=== PATIENT | male | born 1970 | race Two or more races ===

== ENCOUNTER 2024-07-07 20:29 | Inpatient (IN) | payer MEDICAID, OTHER ==
[~2024-07-07] VITALS: Ht 175.3 cm; Wt 92.6 kg
[2024-07-07] MEDS: IOHEXOL 300 MG/ML 100ML BOTTLE IJ ONE (21:13)
[2024-07-07 23:10] LABS: Basophils # (auto) 0.1 10 ^3/uL (0-0.2); Basophils % (auto) 1.1 % (0.0-2.0); Eosinophils # (auto) 0.7 10 ^3/uL (0-0.8); Eosinophils % (auto) 5.8 % (0.0-7.0); Hemoglobin 13.2 g/dL (13.5-17.5); Lymphocytes % (auto) 22.8 % (10.0-50.0); Mean Corpuscular Hemoglobin 23.7 pg (28.0-32.0); Mean Corpuscular Hgb Conc. 32.3 g/dL (32.0-36.0); Mean Corpuscular Volume 73.5 fL (80.0-100.0); Monocytes # (auto) 1.1 10 ^3/uL (0-1.3); Monocytes % (auto) 8.5 % (0.0-12.0); Neutrophils % (auto) 61.8 % (37.0-80.0); Nucleated Red Blood Cells % 0.1 %; Platelet Count (auto) 461 10^3/uL (140-450); Red Blood Cells 5.58 10^6/uL (4.5-5.90); Red Cell Distribution Width 18.3 % (11.8-14.3)
[2024-07-07 23:21] LABS: Chloride 105 mmol/L (98-107); Potassium 4.1 mmol/L (3.5-5.1); Sodium 135 mmol/L (136-145)
[2024-07-07 23:22] LABS: Anion Gap 8 (5-15); Calcium 10.9 mg/dL (8.7-10.4); Carbon Dioxide 22 mmol/L (20-30)
[2024-07-07 23:27] LABS: BUN/Creatinine Ratio 16.7 (10.0-20.0); Blood Urea Nitrogen 16 mg/dL (9-23); Glucose 212 mg/dL (74-106)
[2024-07-08] VITALS (7 sets, daily range): BP systolic 102–160; BP diastolic 56–79; PULSE 68–123; RESP 11–20; TEMP 97.4–98.9; O2SAT 85–99
[2024-07-08] MEDS ORDERED: ACETAMINOPHEN 325 MG TAB PO PRN (05:00)
[2024-07-08] MEDS ORDERED: DEXTROSE (50%) 50ML SYRG IV PRN (05:00)
[2024-07-08] MEDS: cefTRIAXone 1GM/50ML D5W 50 ML IV ONE (05:27)
[2024-07-08] MEDS: ONDANSETRON HCL 4 MG/2 ML VIAL IV PRN (05:27)
[2024-07-08] MEDS: SODIUM CHLORIDE 0.9% 1,000 ML IV ONE (05:27)
[2024-07-08] MEDS: ACCU-CHEK COMFORT CURVE STRIP VI SCH (06:44)
[2024-07-08] MEDS: InsuLIN REG 1unit/0.01ml Soln (100units/ml) SC SCH (06:45)
[2024-07-08] MEDS: MORPHINE SULFATE INJ 2 MG/ml SYRG IV PRN (07:45)
[2024-07-08] MEDS: METOPROLOL TARTRATE 50 MG TAB PO SCH (09:02)
[2024-07-08] MEDS: ASPirin 81 mg TAB PO SCH (09:02)
[2024-07-08 09:49] LABS: INR 1.02 (0.9-1.15); Partial Thromboplastin Time 26.1 SEC (24.5-34.5)
[2024-07-08] MEDS: HYDROcodone-ACET 5/325MG TAB PO PRN (09:51)
[2024-07-08 10:42] LABS: Urine Bacteria FEW /hpf (None Seen); Urine Blood Negative /uL (Negative); Urine Clarity Turbid (Clear); Urine Color Light-Yellow (Yellow); Urine Mucus FEW (None Seen); Urine Protein, UAD TRACE (Negative); Urine Specific Gravity 1.026 (1.001-1.035); Urine Urobilinogen Normal (Negative); Urine WBC 35 /hpf (0 - 3); Urine pH 5.5 (5.0-9.0)
[2024-07-08] MEDS: LORazepam 0.5 MG TAB PO PRN (10:58)
[2024-07-08] MEDS: fentaNYL CITRATE 100 MCG/2 ML VL ONE (14:29)
[2024-07-08] MEDS: MIDAZOLAM HCL 2MG/2ML 2ml VIAL (1mg/ml) ONE ×2 (14:30→16:05)
[2024-07-08] MEDS: LIDOCAINE 2%HCL (LOCAL ANESTH.) INJ 20ML MDV ONE (14:30)
[2024-07-08] MEDS: diphenhdrAMINE HCL 50 MG/1 ML VL ONE (15:07)
[2024-07-08] MEDS: HYDROmorphone HCL 2 MG/ML VL/or syr ONE (15:12)
[2024-07-08] MEDS ORDERED: METF-370 PO (17:52)
[2024-07-08] MEDS ORDERED: ATOR40TA52 PO (17:53)
[2024-07-08] MEDS ORDERED: ASPI325T6 PO (17:53)
[2024-07-08] MEDS ORDERED: MET50T PO (17:54)
[2024-07-08] MEDS: ATORVASTATIN 20 MG TAB PO SCH (21:14)
[2024-07-09] VITALS (8 sets, daily range): BP systolic 130–159; BP diastolic 13–100; PULSE 68–132; RESP 18–22; TEMP 97.9–99.1; O2SAT 95–100
[2024-07-09] MEDS: METOCLOPRAMIDE HCL 5MG/ml INJ 2ml VIAL IV ONE (05:07)
[2024-07-09 07:43] LABS: Chloride 102 mmol/L (98-107); Potassium 5.3 mmol/L (3.5-5.1); Sodium 132 mmol/L (136-145)
[2024-07-09 07:44] LABS: Anion Gap 13 (5-15); Carbon Dioxide 17 mmol/L (20-30)
[2024-07-09 07:45] LABS: Calcium 11.1 mg/dL (8.7-10.4)
[2024-07-09 07:48] LABS: Basophils # (auto) 0 10 ^3/uL (0-0.2); Basophils % (auto) 0.2 % (0.0-2.0); Eosinophils # (auto) 0 10 ^3/uL (0-0.8); Hemoglobin 10.9 g/dL (13.5-17.5); Lymphocytes # (auto) 0.8 10 ^3/uL (0.4-5.4); Mean Corpuscular Hemoglobin 24.1 pg (28.0-32.0); Mean Corpuscular Hgb Conc. 31.3 g/dL (32.0-36.0); Neutrophils # (auto) 18.7 10 ^3/uL (1.6-8.6); Neutrophils % (auto) 90.8 % (37.0-80.0); Platelet Count (auto) 545 10^3/uL (140-450); Red Blood Cells 4.55 10^6/uL (4.5-5.90); Red Cell Distribution Width 18.5 % (11.8-14.3); White Blood Cell 20.6 10^3/uL (4.4-10.8)
[2024-07-09 07:50] LABS: BUN/Creatinine Ratio 8.6 (10.0-20.0); Blood Urea Nitrogen 10 mg/dL (9-23)
[2024-07-09 07:57] LABS: Glucose 353 mg/dL (74-106)
[2024-07-09] MEDS: SODIUM CHLORIDE 0.9% 1,000 ML IV SCH (10:09)
[2024-07-09] MEDS: cefTRIAXone 1GM/50ML D5W 50 ML IV SCH (10:09)
[2024-07-09] MEDS ORDERED: DEXTROSE (50%) 50ML SYRG IV PRN (10:30)
[2024-07-09] MEDS: ACCU-CHEK COMFORT CURVE STRIP VI SCH (11:30)
[2024-07-09] MEDS: InsuLIN REG 1unit/0.01ml Soln (100units/ml) SC SCH ×2 (11:30→20:35)
[2024-07-09] MEDS: SODIUM ZIRCONIUM CYCL 10 GM PAK PO ONE (12:21)
[2024-07-09] MEDS: LORazepam 2MG/ML-1ML VIAL IV PRN (20:26)
[2024-07-09] MEDS: TEMAZEPAM 15 MG CAP PO ONE (22:49)
[2024-07-10 05:00] VITALS: BP 135/82; PULSE 112; RESP 19; TEMP 98.2; O2SAT 100
[2024-07-10 08:00] VITALS: PULSE 105; PULSE 112; RESP 17; O2SAT 96
[2024-07-10 08:20] LABS: Eosinophils # (auto) 0 10 ^3/uL (0-0.8)
[2024-07-10 08:24] LABS: Anion Gap 6 (5-15); Calcium 10.2 mg/dL (8.7-10.4); Carbon Dioxide 25 mmol/L (20-30); Chloride 103 mmol/L (98-107); Potassium 4.1 mmol/L (3.5-5.1); Sodium 134 mmol/L (136-145)
[2024-07-10 08:25] LABS: Basophils # (auto) 0 10 ^3/uL (0-0.2); Basophils % (auto) 0.3 % (0.0-2.0); Eosinophils % (auto) 0.2 % (0.0-7.0); Hematocrit 25.7 % (41.0-53.0); Hemoglobin 8.3 g/dL (13.5-17.5); Lymphocytes # (auto) 1.9 10 ^3/uL (0.4-5.4); Lymphocytes % (auto) 11.9 % (10.0-50.0); Mean Corpuscular Hemoglobin 23.8 pg (28.0-32.0); Mean Corpuscular Hgb Conc. 32.5 g/dL (32.0-36.0); Mean Corpuscular Volume 73.2 fL (80.0-100.0); Monocytes # (auto) 1.5 10 ^3/uL (0-1.3); Monocytes % (auto) 9.2 % (0.0-12.0); Neutrophils # (auto) 12.8 10 ^3/uL (1.6-8.6); Neutrophils % (auto) 78.4 % (37.0-80.0); Platelet Count (auto) 394 10^3/uL (140-450); Red Blood Cells 3.51 10^6/uL (4.5-5.90); Red Cell Distribution Width 17.4 % (11.8-14.3); White Blood Cell 16.3 10^3/uL (4.4-10.8)
[2024-07-10 08:30] LABS: Blood Urea Nitrogen 11 mg/dL (9-23)
[2024-07-10 08:31] LABS: Glucose 199 mg/dL (74-106)
[2024-07-10 08:37] LABS: Partial Thromboplastin Time < 20.0 SEC (24.5-34.5); Prothrombin Time 10.6 sec (9.3-11.8)
[2024-07-10] MEDS: FUROSEMIDE 40 MG/4 ML VIAL IV ONE (08:45)
[2024-07-10 09:00] VITALS: BP 142/77; PULSE 105; RESP 17; TEMP 97.9; O2SAT 96
[2024-07-10] MEDS ORDERED: FUROSEMIDE 40 MG/4 ML VIAL ONE (10:11)
[2024-07-10 13:09] VITALS: BP 146/91; PULSE 117; RESP 16; TEMP 97.8; O2SAT 95
== END 2024-07-10 14:02 | disposition left against medical advice (07) | DRG 466 ==
LOC: ER 20:29 → OVERFLOW 07-08 05:02 → CENTRAL 07-08 17:15 → TELE-CENTR 07-09 09:48
PROVIDERS: ADMIT Nurse Practitioner; ATTEND Nurse Practitioner Acute Care
PROC: 0TJ53ZZ Inspection of Kidney, Percutaneous Approach (ICD-10-PCS; principal; 2024-07-08)
DX: T83.022A Displacement of nephrostomy catheter, initial encounter (principal); N13.6 Pyonephrosis; R65.10 Systemic inflammatory response syndrome (SIRS) of non-infectious origin without acute organ dysfunction; E11.9 Type 2 diabetes mellitus without complications; E78.5 Hyperlipidemia, unspecified; I10 Essential (primary) hypertension; Z53.29 Procedure and treatment not carried out because of patient's decision for other reasons; F31.9 Bipolar disorder, unspecified; E66.9 Obesity, unspecified; Z91.199 Patient's noncompliance with other medical treatment and regimen due to unspecified reason; Z95.1 Presence of aortocoronary bypass graft; Z88.0 Allergy status to penicillin; Y84.8 Other medical procedures as the cause of abnormal reaction of the patient, or of later complication, without mention of misadventure at the time of the procedure; Y92.89 Other specified places as the place of occurrence of the external cause; Z68.30 Body mass index [BMI] 30.0-30.9, adult
CPT/HCPCS: 36415; 71045; 74177; 74425; 76942; 78707; 80048; 81001; 82962; 83036; 84132; 85025; 85610; 85730; 86850; 86900; 86901; 87086; 99152; G0378; J1815; J2250; J2405

== ENCOUNTER 2024-09-03 18:45 | Inpatient (IN) | payer MEDICAID ==
[~2024-09-03] VITALS: Ht 175.3 cm; Wt 92.1 kg
[~2024-09-03 18:45] MED LIST: ASPI325T6 PO; ATOR40TA52 PO; MET50T PO; METF-370 PO
[2024-09-03 19:50] LABS: Basophils # (auto) 0 10 ^3/uL (0-0.2); Basophils % (auto) 0.3 % (0.0-2.0); Eosinophils # (auto) 0 10 ^3/uL (0-0.8); Monocytes # (auto) 1.1 10 ^3/uL (0-1.3)
[2024-09-03 19:52] LABS: Hematocrit 42.7 % (41.0-53.0); Hemoglobin 13.3 g/dL (13.5-17.5); Lymphocytes % (auto) 6.3 % (10.0-50.0); Mean Corpuscular Hemoglobin 22.8 pg (28.0-32.0); Mean Corpuscular Hgb Conc. 31.2 g/dL (32.0-36.0); Monocytes % (auto) 7.4 % (0.0-12.0); Neutrophils # (auto) 13.2 10 ^3/uL (1.6-8.6); Platelet Count (auto) 445 10^3/uL (140-450); Red Blood Cells 5.85 10^6/uL (4.5-5.90); Red Cell Distribution Width 18.1 % (11.8-14.3); White Blood Cell 15.3 10^3/uL (4.4-10.8)
[2024-09-03 20:02] LABS: Anion Gap 12 (5-15); Carbon Dioxide 22 mmol/L (20-31); Chloride 100 mmol/L (98-107); Potassium 3.9 mmol/L (3.5-5.1); Sodium 134 mmol/L (136-145)
[2024-09-03 20:03] LABS: Calcium 11.7 mg/dL (8.7-10.4)
[2024-09-03 20:08] LABS: Glucose 229 mg/dL (74-106)
[2024-09-03 20:39] LABS: INR 1.06 (0.9-1.15); Prothrombin Time 11.2 sec (9.3-11.8)
[2024-09-03 21:15] VITALS: PULSE 111; RESP 13; O2SAT 97
[2024-09-03 21:20] VITALS: PULSE 106; RESP 16; O2SAT 98
[2024-09-03 21:49] LABS: BUN/Creatinine Ratio 8.2 (10.0-20.0); Blood Urea Nitrogen 8 mg/dL (9-23)
[2024-09-03] MEDS ORDERED: MORPHINE SULFATE INJ 2 MG/ml SYRG IV PRN (22:00)
[2024-09-03] MEDS ORDERED: hydrALAZINE HCL 20 MG/ML VL IV PRN (22:00)
[2024-09-03] MEDS ORDERED: NITROGLYCERIN 0.4 MG SL TAB SL PRN (22:00)
[2024-09-03] MEDS ORDERED: ENOXAPARIN SOD 40 MG/0.4 ML SYRINGE SC SCH (22:00)
[2024-09-03] MEDS ORDERED: DEXTROSE (50%) 50ML SYRG IV PRN (22:45)
[2024-09-03] MEDS: cefTRIAXone 1GM/50ML D5W 50 ML IV ONE (22:50)
[2024-09-03] MEDS: MORPHINE SULFATE INJ 2 MG/ml SYRG IV ONE (22:50)
[2024-09-03] MEDS: SODIUM CHLOR 0.9% PF (SALINE LOCK) 10ML VIAL/SYR IV SCH (22:50)
[2024-09-03] MEDS: ONDANSETRON HCL 4 MG/2 ML VIAL IV ONE (22:50)
[2024-09-04] VITALS (7 sets, daily range): BP systolic 127–150; BP diastolic 80–99; PULSE 80–114; RESP 18–21; TEMP 98–99.7; O2SAT 94–100
[2024-09-04] MEDS: LABETALOL HCL 20 MG/4 ML VL IV ONE (00:23)
[2024-09-04] MEDS: ACETAMINOPHEN 325 MG TAB PO PRN (01:50)
[2024-09-04 02:29] LABS: Amphetamine Screen, Urine Neg (NEGATIVE); Barbiturate Scree,Urine Neg (NEGATIVE); Benzodiazephine Screen, Urine Neg (NEGATIVE); Cannabinoid Screen, Urine Pos (NEGATIVE); Cocaine Screen, Urine Neg (NEGATIVE); Opiate Scree,Urine Pos (NEGATIVE); Phencyclidine Screen, Urine Neg (NEGATIVE)
[2024-09-04 02:35] LABS: Urine Bacteria MANY /hpf (None Seen); Urine Blood 2+ /uL (Negative); Urine Clarity Ex.Turbid (Clear); Urine Color Light-Orange (Yellow); Urine Mucus FEW (None Seen); Urine Protein, UAD 2+ (Negative); Urine Specific Gravity 1.015 (1.001-1.035); Urine Urobilinogen Normal (Negative); Urine WBC 584 /hpf (0 - 3); Urine WBC Clumps PRESENT /hpf (None Seen); Urine pH 6.5 (5.0-9.0)
[2024-09-04] MEDS: MORPHINE SULFATE INJ 2 MG/ml SYRG IV PRN (02:43)
[2024-09-04] MEDS: ONDANSETRON HCL 4 MG/2 ML VIAL IV PRN (02:55)
[2024-09-04] MEDS: ACCU-CHEK COMFORT CURVE STRIP VI SCH (06:09)
[2024-09-04] MEDS: InsuLIN REG 1unit/0.01ml Soln (100units/ml) SC SCH ×2 (06:09→21:55)
[2024-09-04 07:11] LABS: Basophils # (auto) 0.1 10 ^3/uL (0-0.2); Basophils % (auto) 0.5 % (0.0-2.0); Eosinophils # (auto) 0 10 ^3/uL (0-0.8); Hematocrit 38.9 % (41.0-53.0); Hemoglobin 12.2 g/dL (13.5-17.5); Lymphocytes # (auto) 0.8 10 ^3/uL (0.4-5.4); Lymphocytes % (auto) 6.8 % (10.0-50.0); Mean Corpuscular Hemoglobin 22.4 pg (28.0-32.0); Mean Corpuscular Hgb Conc. 31.4 g/dL (32.0-36.0); Mean Corpuscular Volume 71.2 fL (80.0-100.0); Monocytes # (auto) 1.1 10 ^3/uL (0-1.3); Monocytes % (auto) 8.9 % (0.0-12.0); Neutrophils # (auto) 10.2 10 ^3/uL (1.6-8.6); Neutrophils % (auto) 83.8 % (37.0-80.0); Platelet Count (auto) 421 10^3/uL (140-450); Red Blood Cells 5.46 10^6/uL (4.5-5.90); Red Cell Distribution Width 18.4 % (11.8-14.3); White Blood Cell 12.2 10^3/uL (4.4-10.8)
[2024-09-04 07:23] LABS: INR 1.09 (0.9-1.15); Partial Thromboplastin Time 25.9 SEC (24.5-34.5); Prothrombin Time 11.5 sec (9.3-11.8)
[2024-09-04 07:32] LABS: Alanine Aminotransferase 11 U/L (7-40); Albumin 4.7 g/dL (3.2-4.8); Alkaline Phosphatase 188 U/L (46-116); Anion Gap 11 (5-15); Aspartate Aminotransferase 8 U/L (13-40); BUN/Creatinine Ratio 10.6 (10.0-20.0); Bilirubin, Total 0.6 mg/dL (0.2-1.0); Blood Urea Nitrogen 9 mg/dL (9-23); Calcium 11.1 mg/dL (8.7-10.4); Carbon Dioxide 22 mmol/L (20-31); Chloride 99 mmol/L (98-107); Glucose 198 mg/dL (74-106); Sodium 132 mmol/L (136-145); Total Protein 7.6 g/dL (5.7-8.2)
[2024-09-04] MEDS: HYDROcodone-ACET 10/325MG TAB PO PRN (14:00)
[2024-09-04] MEDS: PROCHLORPERAZINE EDISYLATE 5 MG/ML 2ML VIAL IV ONE (14:01)
[2024-09-04] MEDS: PIPERACILLIN-TAZOB 3.375GM 100 ML IV SCH (14:04)
[2024-09-04] MEDS: CELECOXIB 100 MG CAP PO ONE (14:04)
[2024-09-05] MEDS: MELATONIN 5 MG TAB PO SCH (01:03)
[2024-09-05 05:00] VITALS: BP 134/95; PULSE 102; RESP 18; TEMP 97.9; O2SAT 94
[2024-09-05 07:43] LABS: Basophils # (auto) 0 10 ^3/uL (0-0.2); Basophils % (auto) 0.5 % (0.0-2.0); Eosinophils # (auto) 0 10 ^3/uL (0-0.8); Eosinophils % (auto) 0.1 % (0.0-7.0); Hemoglobin 12.7 g/dL (13.5-17.5); Monocytes # (auto) 0.8 10 ^3/uL (0-1.3)
[2024-09-05 07:45] LABS: Hematocrit 39.6 % (41.0-53.0); Lymphocytes # (auto) 0.6 10 ^3/uL (0.4-5.4); Lymphocytes % (auto) 6.5 % (10.0-50.0); Mean Corpuscular Hemoglobin 22.6 pg (28.0-32.0); Mean Corpuscular Hgb Conc. 32.2 g/dL (32.0-36.0); Mean Corpuscular Volume 70.2 fL (80.0-100.0); Monocytes % (auto) 8.9 % (0.0-12.0); Neutrophils # (auto) 7.2 10 ^3/uL (1.6-8.6); Platelet Count (auto) 393 10^3/uL (140-450); Red Blood Cells 5.64 10^6/uL (4.5-5.90); White Blood Cell 8.6 10^3/uL (4.4-10.8)
[2024-09-05 08:02] LABS: Alanine Aminotransferase 16 U/L (7-40); Alkaline Phosphatase 181 U/L (46-116); Anion Gap 10 (5-15); BUN/Creatinine Ratio 11.6 (10.0-20.0); Blood Urea Nitrogen 11 mg/dL (9-23); Calcium 10.9 mg/dL (8.7-10.4); Carbon Dioxide 23 mmol/L (20-31); Chloride 98 mmol/L (98-107); Glucose 203 mg/dL (74-106); Potassium 4.2 mmol/L (3.5-5.1); Sodium 131 mmol/L (136-145)
[2024-09-05 08:03] LABS: Albumin 4.5 g/dL (3.2-4.8); Aspartate Aminotransferase 17 U/L (13-40); Bilirubin, Total 0.7 mg/dL (0.2-1.0)
[2024-09-05 08:04] LABS: Total Protein 7.3 g/dL (5.7-8.2)
[2024-09-05 09:47] VITALS: BP 130/86; PULSE 101; RESP 17; TEMP 98.2; O2SAT 95
[2024-09-05 13:00] VITALS: BP 127/87; PULSE 115; RESP 17; TEMP 97.1; O2SAT 97
[2024-09-05] MEDS ORDERED: HYDR-4798 PO (13:08)
[2024-09-05] MEDS ORDERED: ZOFR4T PO (13:08)
[2024-09-05] MEDS ORDERED: BACDST PO (13:08)
[2024-09-05 15:01] VITALS: PULSE 106
[2024-09-05 17:00] VITALS: BP 128/72; PULSE 98; RESP 17; TEMP 98.3; O2SAT 94
[2024-09-05 21:00] VITALS: BP 141/106; PULSE 139; RESP 18; TEMP 99; O2SAT 99
[2024-09-05] MEDS ORDERED: MELATONIN 5 MG TAB PO SCH (22:00)
[2024-09-06 01:00] VITALS: BP 128/91; PULSE 90; RESP 18; TEMP 98.1; O2SAT 96
[2024-09-06 05:00] VITALS: BP 133/89; PULSE 80; RESP 18; TEMP 98.2; O2SAT 95
[2024-09-06 09:11] VITALS: BP 108/70; PULSE 78; RESP 20; TEMP 97.7; O2SAT 96
[2024-09-06] MEDS ORDERED: HYDR-4798 PO (12:02)
[2024-09-06] MEDS ORDERED: ZOFR4T PO (12:02)
[2024-09-06] MEDS ORDERED: SULF400T11 PO (12:02)
[2024-09-06 12:38] VITALS: BP 134/75; PULSE 89; RESP 20; TEMP 98.2; O2SAT 94
== END 2024-09-06 13:00 | disposition home health service (06) | DRG 720 ==
LOC: ER 18:45 → OVERFLOW 21:55 → WEST WING 23:59
PROVIDERS: ADMIT Student in an Organized Health Care Education/Training Program; ATTEND Student in an Organized Health Care Education/Training Program
DX: A41.9 Sepsis, unspecified organism (principal); S37.011A Minor contusion of right kidney, initial encounter; E11.9 Type 2 diabetes mellitus without complications; D50.9 Iron deficiency anemia, unspecified; E78.5 Hyperlipidemia, unspecified; F12.10 Cannabis abuse, uncomplicated; T83.022A Displacement of nephrostomy catheter, initial encounter; N10 Acute pyelonephritis; N20.0 Calculus of kidney; F20.9 Schizophrenia, unspecified; I10 Essential (primary) hypertension; I25.10 Atherosclerotic heart disease of native coronary artery without angina pectoris; R91.1 Solitary pulmonary nodule; K42.9 Umbilical hernia without obstruction or gangrene; F41.9 Anxiety disorder, unspecified; I25.2 Old myocardial infarction; Z95.1 Presence of aortocoronary bypass graft; Z87.442 Personal history of urinary calculi; Z79.84 Long term (current) use of oral hypoglycemic drugs; Z79.82 Long term (current) use of aspirin; Y73.2 Prosthetic and other implants, materials and accessory gastroenterology and urology devices associated with adverse incidents; Y92.89 Other specified places as the place of occurrence of the external cause; Z88.5 Allergy status to narcotic agent; Z88.0 Allergy status to penicillin; Z79.899 Other long term (current) drug therapy
CPT/HCPCS: 36415; 74176; 80048; 80053; 80307; 81001; 82306; 82607; 82962; 83036; 84443; 85025; 85610; 85730; 86850; 86900; 86901; 87040; 87081; 87086; 87088; 87186; 96365; 96375; 99291; G0378; J1815; J2405; J2543

== ENCOUNTER 2024-09-20 17:56 | Emergency (ER) | payer MEDICAID ==
[~2024-09-20] VITALS: Ht 175.3 cm; Wt 89.3 kg
[~2024-09-20 17:56] MED LIST changes: +HYDR-4798 PO; +SULF400T11 PO; +ZOFR4T PO
[2024-09-20 18:09] VITALS: BP 158/110; PULSE 120; RESP 18; O2SAT 98
--- NOTE | 2024-09-20 18:54 | ED.PDOC ---
History of Present Illness HPI Comments 54-year-old male who came to ER for abnormal labs. Has a history of recurrent pyelonephritis, R nephrostomy, R renal hematoma, Hx R renal staghorn calculi. Patient being managed at [facility], multiple diagnostic test was done yesterday on him, and he was here with a phone call earlier today requesting him to proceed to the nearest ER since he has a normal lab results. Patient at this time is complaining of intractable nausea and vomiting states he could keep anything in Chief Complaint: Abnormal LAB's Time Seen by MD: 18:53 Primary Care Provider: UNKNOWN Reviewed Notes: Nurses Notes Allergies: Coded Allergies: Penicillins (Verified Allergy, Unknown, 07/07/24) Home Meds Active Scripts Ondansetron Odt 4MG Tab (ZOFRAN PO) 4 Mg Tb, 4 MG PO TIDPRN PRN for 5 Days, #15 TAB 0 Refills ODT TAB-DISSOLVE IN MOUTH, THEN SWALLOW Prov:BRUCE SAENZ MD 09/06/24 Hydrocodone-Acetaminophen (Hydrocodone Bitartrate/AC 10-325 mg) 1 Tab Tab, 1 TAB PO TIDPRN PRN for 7 Days, #21 TAB Prov:BRUCE SAENZ MD 09/06/24 Sulfamethoxazole-Trimethoprim (Bactrim) 1 Tab Tab, 1 TAB PO BID for 14 Days, #28 TAB 0 Refills Prov:BRUCE SAENZ MD 09/06/24 Reported Medications Metoprolol Tartrate (LOPRESSOR TABLET) 50 Mg Tb, 1 TAB PO BID 07/08/24 Aspirin (Aspirin) 325 Mg Tab, 1 TAB PO DAILY, #30 TAB 5 Refills 07/08/24 Atorvastatin Calcium (ATORVASTATIN CALCIUM) 40 Mg Tab, 1 TAB PO DAILY, #30 TAB 5 Refills 07/08/24 Metformin Hydrochloride (Metformin Hcl) 500 Mg Tab, PO 07/08/24 Information Source: Patient Mode of Arrival: Ambulatory Severity: Moderate Timing: Days Duration: Intermittent Prehospital treatment: None Past Medical History PAST MEDICAL HISTORY: CKF, DM, Kidney Stones Past Medical History (Other): pyelonephritis, R nephrostomy, R renal hematoma, Hx R renal staghorn calculi Surgical History: CABG, PTCA Surgical History (Other): Right nephrostomy tube Family History Family History: Reviewed,noncontributory to illness Social History Smoker: Non-Smoker Alcohol: Denies ETOH Use Drugs: Denies Drug Use Lives In: Home Constitutional: denies: chills, diaphoresis, fatigue, fever, malaise, sweats, weakness, others EENTM: denies: blurred vision, double vision, ear bleeding, ear discharge, ear drainage, ear pain, ear ringing, eye pain, eye redness, hearing loss, mouth pain, mouth swelling, nasal discharge, nose bleeding, nose congestion, nose pain, photophobia, tearing, throat pain, throat swelling, voice changes, others Respiratory: denies: cough, hemoptysis, orthopnea, SOB at rest, shortness of breath, SOB with excertion, stridor, wheezing, others Cardiovascular: denies: chest pain, dizzy spells, diaphoresis, Dyspnea on exertion, edema, irregular heart beat, left arm pain, lightheadedness, palpitations, PND, syncope, others Gastrointestinal: reports: nausea, poor appetite, vomiting; denies: abdomen distended, abdominal pain, blood streaked bowels, constipated, diarrhea, dysphagia, difficulty swallowing, hematemesis, melena, poor fluid intake, rectal bleeding, rectal pain, others Genitourinary: denies: burning, dysuria, flank pain, frequency, hematuria, incontinence, penile discharge, penile sore, pain, testicle pain, testicle swelling, urgency, others Neurological: denies: dizziness, fainting, headache, left sided numbness, left sided weakness, numbness, paresthesia, pre-existing deficit, right sided numbness, right sided weakness, seizure, speech problems, tingling, tremors, weakness, others Musculoskeletal: denies: back pain, gout, joint pain, joint swelling, muscle pain, muscle stiffness, neck pain, others Integumetry: denies: bruises, change in color, change in hair/nails, dryness, laceration, lesions, lumps, rash, wounds, others Allergic/Immunocompromised: denies: Difficulty Healing, Frequent Infections, Hives, Itching, others Hematologic/Lymphatic: denies: anemia, blood clots, easy bleeding, easy bruising, swollen glands, others Endocrine: denies: excessive hunger, excessive sweating, excessive thirst, excessive urination, flushing, intolerance to cold, intolerance to heat, unexplained weight gain, unexplained weight loss, others Psychiatric: denies: anxiety, bipolar disorder, depression, hopeless, panic d isorder, schizophrenia, sleepless, suicidal, others Physical Exam General Appearance: No Apparent Distress, Normal HEENT: Normal ENT Inspection, Pharynx Normal, TMs Normal Neck: Full Range of Motion, Non-Tender, Normal, Normal Inspection Respiratory: Chest Non-Tender, Lungs Clear, No Accessory Muscle Use, No Respiratory Distress, Normal Breath Sounds Cardiovascular: No Edema, No JVD, No Murmur, No Gallop, Normal Peripheral Pulses, Regular Rate/Rhythm Breast Exam: Deferred Gastrointestinal: No Organomegaly, Non Tender, No Pulsatile Mass, Normal Bowel Sounds, Soft, Other (Right nephrostomy tube) Genitalia: Deferred Pelvic: Deferred Rectal: Deferred Extremities: No calf tenderness, Normal capillary refill, Normal inspection, Normal range of motion, Non-tender, No pedal edema Musculoskeletal : Apperance: Normal Neurologic: Alert, 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 Was a procedure done?: No Differential Dx Considerations may include: Anemia, electrolyte imbalance, chronic kidney failure, recurrent UTI, nephrostomy issues X-Ray, Labs, Meds, VS Vital Signs Date Time Temp Pulse Resp B/P (MAP) Pulse Ox O2 Delivery O2 Flow Rate FiO2 09/20/24 18:09 97.5 120 18 158/110 (126) 98 Lab Test 09/20/24 18:40 Range/Units White Blood Count 14.7 H 4.4-10.8 10^3/uL Red Blood Count 6.19 H 4.5-5.90 10^6/uL Hemoglobin 14.1 13.5-17.5 g/dL Hematocrit 44.3 41.0-53.0 % Mean Corpuscular Volume 71.5 L 80.0-100.0 fL Mean Corpuscular Hemoglobin 22.7 L 28.0-32.0 pg Mean Corpuscular Hemoglobin Concent 31.8 L 32.0-36.0 g/dL Red Cell Distribution Width 18.6 H 11.8-14.3 % Platelet Count 674 H 140-450 10^3/uL Mean Platelet Volume 7.6 6.9-10.8 fL Neutrophils (%) (Auto) 78.3 37.0-80.0 % Lymphocytes (%) (Auto) 12.5 10.0-50.0 % Monocytes (%) (Auto) 8.1 0.0-12.0 % Eosinophils (%) (Auto) 0.3 0.0-7.0 % Basophils (%) (Auto) 0.8 0.0-2.0 % Neutrophils # (Auto) 11.5 H 1.6-8.6 10 ^3/uL Lymphocytes # (Auto) 1.8 0.4-5.4 10 ^3/uL Monocytes # (Auto) 1.2 0-1.3 10 ^3/uL Eosinophils # (Auto) 0 0-0.8 10 ^3/uL Basophils # (Auto) 0.1 0-0.2 10 ^3/uL Nucleated Red Blood Cells 0.0 % Sodium Level 133 L 136-145 mmol/L Potassium Level 4.1 3.5-5.1 mmol/L Chloride Level 99 98-107 mmol/L Carbon Dioxide Level 22 20-31 mmol/L Anion Gap 12 5-15 Blood Urea Nitrogen 11 9-23 mg/dL Creatinine 1.23 0.700-1.30 mg/dL Glomerular Filtration Rate Calc 69 >90 mL/min BUN/Creatinine Ratio 8.9 L 10.0-20.0 Serum Glucose 238 H 74-106 mg/dL Lactic Acid Level 1.7 0.4-2.0 mmol/L Calcium Level 11.9 H 8.7-10.4 mg/dL Time of 1ST Reevaluation: 18:47 Reevaluation 1ST: Unchanged Patient Education/Counseling: Diagnosis, Treatment Family Education/Counseling: No Family Present Departure 1 Departure Time of Disposition: 19:35 (Patient does not want to wait for lab results for. We will discharge patient home with outpatient follow up) Impression: Primary Impression: Laboratory test Disposition: 01 HOME / SELF CARE / HOMELESS Condition: Stable Additional Instructions: We sent new blood cultures to the lab today. We will call you with any results. Discharged With: Self Critical Care Note Critical Care Time?: No Stability Stability form required: No Heart Score Heart Score: Heart Score Response (Comments) Value History N/A 0 EKG N/A 0 Age N/A 0 Risk Factors N/A 0 Troponin N/A 0 Total 0 I personally scribed for KAMILA DRIVER MD ([email or web address]) on 09/20/24 at 18:54. Electronically submitted by Clark Ortega ([facility]). KAMILA DRIVER MD Sep 20, 2024 18:54
[2024-09-20 19:16] LABS: Basophils # (auto) 0.1 10 ^3/uL (0-0.2); Basophils % (auto) 0.8 % (0.0-2.0); Eosinophils # (auto) 0 10 ^3/uL (0-0.8); Eosinophils % (auto) 0.3 % (0.0-7.0)
[2024-09-20 19:18] LABS: Hematocrit 44.3 % (41.0-53.0); Hemoglobin 14.1 g/dL (13.5-17.5); Lymphocytes # (auto) 1.8 10 ^3/uL (0.4-5.4); Lymphocytes % (auto) 12.5 % (10.0-50.0); Mean Corpuscular Hemoglobin 22.7 pg (28.0-32.0); Mean Corpuscular Hgb Conc. 31.8 g/dL (32.0-36.0); Mean Corpuscular Volume 71.5 fL (80.0-100.0); Monocytes # (auto) 1.2 10 ^3/uL (0-1.3); Monocytes % (auto) 8.1 % (0.0-12.0); Neutrophils # (auto) 11.5 10 ^3/uL (1.6-8.6); Neutrophils % (auto) 78.3 % (37.0-80.0); Platelet Count (auto) 674 10^3/uL (140-450); Red Blood Cells 6.19 10^6/uL (4.5-5.90); Red Cell Distribution Width 18.6 % (11.8-14.3); White Blood Cell 14.7 10^3/uL (4.4-10.8)
[2024-09-20 19:22] LABS: Chloride 99 mmol/L (98-107); Potassium 4.1 mmol/L (3.5-5.1); Sodium 133 mmol/L (136-145)
[2024-09-20 19:24] LABS: Anion Gap 12 (5-15); Calcium 11.9 mg/dL (8.7-10.4); Carbon Dioxide 22 mmol/L (20-31)
[2024-09-20 19:29] LABS: BUN/Creatinine Ratio 8.9 (10.0-20.0); Blood Urea Nitrogen 11 mg/dL (9-23); Glucose 238 mg/dL (74-106)
== END 2024-09-20 21:16 | disposition home or self-care (01) ==
LOC: ER 18:04
DX: R78.89 Finding of other specified substances, not normally found in blood (principal); E11.9 Type 2 diabetes mellitus without complications; Z88.0 Allergy status to penicillin; Z79.899 Other long term (current) drug therapy; Z79.84 Long term (current) use of oral hypoglycemic drugs; Z87.442 Personal history of urinary calculi; Z98.890 Other specified postprocedural states
CPT/HCPCS: 36415; 80048; 83605; 85025; 87040

== ENCOUNTER 2025-02-08 15:34 | Emergency (ER) | payer MEDICAID ==
[~2025-02-08] VITALS: Ht 175.3 cm; Wt 91.2 kg
[2025-02-08] MEDS: SODIUM CHLORIDE 0.9% 1,000 ML IV ONE (16:00)
[2025-02-08] MEDS: VANCOMYCIN 1GM/200ML PM 250 ML IV ONE (16:00)
[2025-02-08 16:15] VITALS: BP 91/36; TEMP 98.4
[2025-02-08 16:28] VITALS: PULSE 134; RESP 18; O2SAT 96
[2025-02-08 16:39] LABS: Basophils # (auto) 0.1 10 ^3/uL (0-0.2); Basophils % (auto) 1.1 % (0.0-2.0); Eosinophils # (auto) 0.4 10 ^3/uL (0-0.8); Eosinophils % (auto) 2.8 % (0.0-7.0); Hematocrit 42.4 % (41.0-53.0); Hemoglobin 13.9 g/dL (13.5-17.5); Lymphocytes # (auto) 2.3 10 ^3/uL (0.4-5.4); Lymphocytes % (auto) 17.8 % (10.0-50.0); Mean Corpuscular Hgb Conc. 32.7 g/dL (32.0-36.0); Mean Corpuscular Volume 76.5 fL (80.0-100.0); Monocytes # (auto) 1.1 10 ^3/uL (0-1.3); Monocytes % (auto) 8.3 % (0.0-12.0); Neutrophils # (auto) 8.9 10 ^3/uL (1.6-8.6); Nucleated Red Blood Cells % 0.1 %; Platelet Count (auto) 480 10^3/uL (140-450); Red Blood Cells 5.55 10^6/uL (4.5-5.90); Red Cell Distribution Width 17.7 % (11.8-14.3); White Blood Cell 12.7 10^3/uL (4.4-10.8)
[2025-02-08 16:55] LABS: Alanine Aminotransferase 19 U/L (7-40); Anion Gap 9 (5-15); BUN/Creatinine Ratio 10.3 (10.0-20.0); Blood Urea Nitrogen 12 mg/dL (9-23); Carbon Dioxide 23 mmol/L (20-31); Chloride 103 mmol/L (98-107); Total Protein 8.1 g/dL (5.7-8.2)
[2025-02-08 16:56] LABS: Bilirubin, Total 0.4 mg/dL (0.2-1.0)
--- NOTE | 2025-02-08 16:58 | DVH ---
Indication: back pain Technique: CT axial images of the abdomen and pelvis are obtained without contrast. Coronal and sagit daniel reformats were obtained. Radiation Dose Information: CTDI volume is 15.27 mGy. Dose-length product is 835.73 mGy*cm Comparison: CT CT AB PEL WO CON-NO ORAL OR IV on DOS: 09/03/24 FINDINGS: There is limited interpretation of the abdomen and pelvis without administration of intravenous contr ast. The lung bases demonstrate a 10 mm right middle lobe pulmonary nodule. Adrenal glands, spleen, pancreas are unremarkable in shape. No CT evidence for cholelithiasis. Liver is unremarkable in shape. Left kidney demonstrates no hydronephrosis, nephrolithiasis. There is a right nephrostomy tube. Mild right hydronephrosis. Right ureteral stent that is is encrust ed in the lower right renal pelvis / proximal right ureter by a calculus that measures approximately 2.9 cm. Similarly, there is a bladder calculus encrusting the distal pigtail measuring 1.9 cm. Right perinephric stranding. Right perinephric fluid collection anteriorly measuring 3.3 x 2.3 cm, previous ly 7.1 x 5.6 cm. Stomach is moderately distended. Small bowel loops normal in caliber. Colonic diverticular disease. M oderate volume stool in the colon. Normal appendix. Abdominal aortic atherosclerotic disease. Bladder is partially distended. Bladder wall thickening and surrounding stranding. Bladder calculus and crossing the distal ureteral stent pigtail again noted. No free pelvic fluid. No inguinal lymphadenopathy. Periumbilical hernia containing fat measuring 6.6 x 6.9 cm. [id number] thoracolumbar degenerative disc disease. IMPRESSION: 1. Right nephrostomy tube and mild right hydronephrosis. 2. Large pelvic/staghorn calculus measuring 2.9 cm that is encrusting a right ureteral stent. The dis daniel pigtail is also encrusted by a bladder calculus which measures 1.9 cm. 3. Right perinephric stranding / edema. Correlate for urinary tract infection / pyelonephritis. 4. Anterior right perinephric fluid collection measuring 3.3 x 2.3 cm, decreased from previous examin ation. Differential considerations include hematoma, infected collections. Follow-up to resolution. 5. Bladder wall thickening with surrounding stranding, may represent cystitis. 6. 10 mm right middle lobe pulmonary nodule. Follow-up per Fleischner society criteria. 7. Large periumbilical hernia containing fat measuring 6.9 x 6.6 cm. 8. Other findings as described.
[2025-02-08 17:02] LABS: Albumin 5.2 g/dL (3.2-4.8); Alkaline Phosphatase 223 U/L (46-116); Aspartate Aminotransferase 13 U/L (13-40); Calcium 11.7 mg/dL (8.7-10.4); Glucose 249 mg/dL (74-106); Sodium 135 mmol/L (136-145)
[2025-02-08] MEDS ORDERED: CIPR-173 PO (18:16)
[2025-02-08] MEDS ORDERED: HYDR-4902 PO (18:16)
--- NOTE | 2025-02-08 18:18 | ED.PDOC ---
General HPI Comments 54-year-old male complaining of painful urination and discharge from around his nephrostomy tube. Patient reports having history of kidney stone which has plugged the right kidney. States he was being evaluated for right kidney removal. States his change the dressing on his nephrostomy tube and she was states he was discharged in his foul odor. Patient was says he has a appointment with Urology on and can be seen by his doctor then. Chief Complaint: Urinary Time Seen by MD: 15:39 Primary Care Provider: UNKNOWN Reviewed notes: Nurses Notes Allergies: Coded Allergies: Penicillins (Verified Allergy, Unknown, 07/07/24) Home Meds Active Scripts Ondansetron Odt 4MG Tab (ZOFRAN PO) 4 Mg Tb, 4 MG PO TIDPRN PRN for 5 Days, #15 TAB 0 Refills ODT TAB-DISSOLVE IN MOUTH, THEN SWALLOW Prov:BRUCE SAENZ MD 09/06/24 Hydrocodone-Acetaminophen (Hydrocodone Bitartrate/AC 10-325 mg) 1 Tab Tab, 1 TAB PO TIDPRN PRN for 7 Days, #21 TAB Prov:BRUCE SAENZ MD 09/06/24 Sulfamethoxazole-Trimethoprim (Bactrim) 1 Tab Tab, 1 TAB PO BID for 14 Days, #28 TAB 0 Refills Prov:BRUCE SAENZ MD 09/06/24 Reported Medications Metoprolol Tartrate (LOPRESSOR TABLET) 50 Mg Tb, 1 TAB PO BID 07/08/24 Aspirin (Aspirin) 325 Mg Tab, 1 TAB PO DAILY, #30 TAB 5 Refills 07/08/24 Atorvastatin Calcium (ATORVASTATIN CALCIUM) 40 Mg Tab, 1 TAB PO DAILY, #30 TAB 5 Refills 07/08/24 Metformin Hydrochloride (Metformin Hcl) 500 Mg Tab, PO 07/08/24 Information Source: Patient Mode of Arrival: Ambulatory Severity: Mild Past Medical History PAST MEDICAL HISTORY: CKF, DM, Kidney Stones Surgical History: CABG, PTCA Family History Family History: Reviewed,noncontributory to illness Social History Smoker: Non-Smoker Alcohol: Denies ETOH Use Drugs: Denies Drug Use Lives In: Home Constitutional: denies: chills, diaphoresis, fatigue, fever, malaise, sweats, weakness, others EENTM: denies: blurred vision, double vision, ear bleeding, ear discharge, ear drainage, ear pain, ear ringing, eye pain, eye redness, hearing loss, mouth pain, mouth swelling, nasal discharge, nose bleeding, nose congestion, nose pain, photophobia, tearing, throat pain, throat swelling, voice changes, others Respiratory: denies: cough, hemoptysis, orthopnea, SOB at rest, shortness of breath, SOB with excertion, stridor, wheezing, others Cardiovascular: denies: chest pain, dizzy spells, diaphoresis, Dyspnea on exertion, edema, irregular heart beat, left arm pain, lightheadedness, palpitations, PND, syncope, others Gastrointestinal: denies: abdomen distended, abdominal pain, blood streaked bowels, constipated, diarrhea, dysphagia, difficulty swallowing, hematemesis, melena, nausea, poor appetite, poor fluid intake, rectal bleeding, rectal pain, vomiting, others Genitourinary: reports: burning, dysuria, flank pain; denies: frequency, hematuria, incontinence, penile discharge, penile sore, pain, testicle pain, testicle swelling, urgency, others Neurological: denies: dizziness, fainting, headache, left sided numbness, left sided weakness, numbness, paresthesia, pre-existing deficit, right sided numbness, right sided weakness, seizure, speech problems, tingling, tremors, weakness, others Musculoskeletal: denies: back pain, gout, joint pain, joint swelling, muscle pain, muscle stiffness, neck pain, others Integumetry: denies: bruises, change in color, change in hair/nails, dryness, laceration, lesions, lumps, rash, wounds, others Allergic/Immunocompromised: denies: Difficulty Healing, Frequent Infections, Hives, Itching, others Physical Exam General Appearance: No Apparent Distress, Normal HEENT: Normal ENT Inspection, Pharynx Normal, TMs Normal Neck: Full Range of Motion, Non-Tender, Normal, Normal Inspection Respiratory: Chest Non-Tender, Lungs Clear, No Accessory Muscle Use, No Respiratory Distress, Normal Breath Sounds Cardiovascular: No Edema, No JVD, No Murmur, No Gallop, Normal Peripheral Pulses, Regular Rate/Rhythm Breast Exam: Deferred Gastrointestinal: No Organomegaly, Non Tender, No Pulsatile Mass, Normal Bowel Sounds, Soft Genitalia: Deferred Pelvic: Deferred Rectal: Deferred Extremities: No calf tenderness, Normal capillary refill, Normal inspection, Normal range of motion, Non-tender, No pedal edema Musculoskeletal : Apperance: Normal Neurologic: Alert, licensed mental health professional II-XII nml as Tested, No Motor Deficits, Normal Affect, Normal Mood, No Sensory Deficits Cerebellar Function: Normal Reflexes: Normal Skin: Dry, Normal Color, Warm, Wounds (Scant discharge noted around the right nephrostomy tube insertion site.) Lymphatic: No Adenopathy Was a procedure done? Was a procedure done?: No Differential Diagnosis Kidney stone (Female): N/A Kidney stone (Male): Pancreatitis, Urinary obstruction, Renal infarction, Urinary tract infection X-Ray, Labs, Meds, VS Vital Signs Date Time Temp Pulse Resp B/P (MAP) Pulse Ox O2 Delivery O2 Flow Rate FiO2 02/08/25 16:28 134 18 96 Room Air* 0 21 02/08/25 16:15 98.4 130 18 91/36 (54) 96 98.4 02/08/25 15:55 111 02/08/25 15:46 96.8 134 18 91/36 (54) 96 96.8 Lab Test 02/08/25 16:08 Range/Units White Blood Count 12.7 H 4.4-10.8 10^3/uL Red Blood Count 5.55 4.5-5.90 10^6/uL Hemoglobin 13.9 13.5-17.5 g/dL Hematocrit 42.4 41.0-53.0 % Mean Corpuscular Volume 76.5 L 80.0-100.0 fL Mean Corpuscular Hemoglobin 25.0 L 28.0-32.0 pg Mean Corpuscular Hemoglobin Concent 32.7 32.0-36.0 g/dL Red Cell Distribution Width 17.7 H 11.8-14.3 % Platelet Count 480 H 140-450 10^3/uL Mean Platelet Volume 8.0 6.9-10.8 fL Neutrophils (%) (Auto) 70.0 37.0-80.0 % Lymphocytes (%) (Auto) 17.8 10.0-50.0 % Monocytes (%) (Auto) 8.3 0.0-12.0 % Eosinophils (%) (Auto) 2.8 0.0-7.0 % Basophils (%) (Auto) 1.1 0.0-2.0 % Neutrophils # (Auto) 8.9 H 1.6-8.6 10 ^3/uL Lymphocytes # (Auto) 2.3 0.4-5.4 10 ^3/uL Monocytes # (Auto) 1.1 0-1.3 10 ^3/uL Eosinophils # (Auto) 0.4 0-0.8 10 ^3/uL Basophils # (Auto) 0.1 0-0.2 10 ^3/uL Nucleated Red Blood Cells 0.1 % Sodium Level 135 L 136-145 mmol/L Potassium Level 4.0 3.5-5.1 mmol/L Chloride Level 103 98-107 mmol/L Carbon Dioxide Level 23 20-31 mmol/L Anion Gap 9 5-15 Blood Urea Nitrogen 12 9-23 mg/dL Creatinine 1.17 0.700-1.30 mg/dL Glomerular Filtration Rate Calc 74 >90 mL/min BUN/Creatinine Ratio 10.3 10.0-20.0 Serum Glucose 249 H 74-106 mg/dL Lactic Acid Level 1.8 0.4-2.0 mmol/L Calcium Level 11.7 H 8.7-10.4 mg/dL Total Bilirubin 0.4 0.2-1.0 mg/dL Aspartate Amino Transferase (AST) 13 13-40 U/L Alanine Aminotransferase (ALT) 19 7-40 U/L Alkaline Phosphatase 223 H 46-116 U/L Total Protein 8.1 5.7-8.2 g/dL Albumin 5.2 H 3.2-4.8 g/dL X-Ray, Labs, Meds, VS Comment Imaging: X-rays and CT scans were reviewed and interpreted by this provider, imaging shows renal calculi in the right side in possible pyelonephritis. Pending radiology review. Laboratory: Labs reviewed and interpreted by this provider. Patient has prior medical visits reviewed. Med reconciliation performed Vital signs reviewed He was explained to patient was a need for IV antibiotics to prevent worsening infection. Patient was states he was not lying being poked in refuses needles and IM antibiotic injections Patient was willing to wear continuous monitor and keeps taking wears off Patient preferred to be discharged home and follow up with his urologist on . Time of 1ST Reevaluation: 18:18 Reevaluation 1ST: Unchanged Patient Education/Counseling: Diagnosis, Treatment, Need For Follow Up (Follow up with PCP/urology next available appointment. Return to emergency department if symptoms worsen in the next 24 hours.) Family Education/Counseling: Diagnosis, Treatment Departure 1 Departure Time of Disposition: 18:13 Impression: Primary Impression: Nephrostomy complication Additional Impressions: Right flank pain Renal colic Pyelonephritis Disposition: HOME / SELF CARE / HOMELESS Condition: Stable e-Prescriptions Hydrocodone-Acetaminophen (Hydrocodone Bitartrate/AC 5-325 mg) 1 Tab Tab 1 TAB PO TID PRN, #12 TAB Prov: JODY MAURER 02/08/25 Ciprofloxacin Hcl (Cipro) 500 Mg Tab 1 TAB PO BID for 10 Days, #20 TAB Prov: JODY MAURER 02/08/25 Discharged With: Self Critical Care Note Critical Care Time?: No Stability Stability form required: No Heart Score Heart Score: Heart Score Response (Comments) Value History N/A 0 EKG N/A 0 Age N/A 0 Risk Factors N/A 0 Troponin N/A 0 Total 0 JODY MAURER Feb 08, 2025 18:18
[2025-02-08] MEDS: HYDROcodone-ACET 10/325MG TAB PO ONE (18:24)
[2025-02-08] MEDS: CIPROFLOXACIN HCL 500 MG TAB PO ONE (18:24)
--- NOTE | 2025-02-09 07:31 | ECG ---
[facility] Test Date: 2025-02-08 Test Time: 15:55:01 Pat Name: MER LEWIS Department: ER Room: Gender: M Material Assembler: [facility] : 1970 Requested By: EMERGENCY EMERGENCY Order Number: [id number] Reading MD: Erich Anders Measurements Intervals [place] Rate: 111 P: 38 [place]: 160 QRS: 242 QRSD: 82 T: 59 QT: 321 QTc: 436 Interpretive Statements Sinus tachycardia Probable left atrial enlargement Left anterior fascicular block Abnormal R-wave progression, late transition Baseline wander in lead(s) III,V2 Electronically Signed On 02-11-2025 14:19:12 PDT by Erich Anders Please click the below link to view image of tracing.
== END 2025-02-08 19:20 | disposition home or self-care (01) ==
LOC: ER 15:34
DX: T83.9XXA Unspecified complication of genitourinary prosthetic device, implant and graft, initial encounter (principal); N12 Tubulo-interstitial nephritis, not specified as acute or chronic; N23 Unspecified renal colic; E11.22 Type 2 diabetes mellitus with diabetic chronic kidney disease; N18.9 Chronic kidney disease, unspecified; Z87.442 Personal history of urinary calculi; Z95.1 Presence of aortocoronary bypass graft; Z79.82 Long term (current) use of aspirin; Z79.899 Other long term (current) drug therapy; Z88.0 Allergy status to penicillin; X58.XXXA Exposure to other specified factors, initial encounter
CPT/HCPCS: 36415; 74176; 80053; 83605; 85025; 87040; 93005

== ENCOUNTER 2025-08-01 16:14 | Inpatient (IN) | payer MEDICAID ==
[~2025-08-01] VITALS: Ht 175.3 cm; Wt 99.6 kg
[~2025-08-01 16:14] MED LIST changes: +CIPR-173 PO; +HYDR-4902 PO
--- NOTE | 2025-08-01 17:46 | ED.PDOC ---
General HPI Comments A 55 year-old male who presents to the ED via wheelchair with a chief complaint of infected nephrostomy tube. Patient additionally reports having an obstructing kidney stone. Patient has had a nephrostomy bag in place for 1.5 years since he is unable to urinate. Patient reports taking antibiotics for 1.5 months. Patient additionally states he was told to come to the ED from the long term. Patient has no further complaints at this time and otherwise denies N/V/D, redness, itchiness, fever, or chills. Patient was hypertensive with a blood pressure of 177/111 at arrival. Patient appears to be in poor overall health. Chief Complaint: Urinary Time Seen by MD: 17:40 Primary Care Provider: UNKNOWN Reviewed notes: Nurses Notes, Medications, Allergies Allergies: Coded Allergies: Penicillins (Verified Allergy, Unknown, 07/07/24) Home Meds Active Scripts Hydrocodone-Acetaminophen (Hydrocodone Bitartrate/AC 5-325 mg) 1 Tab Tab, 1 TAB PO TID PRN, #12 TAB Prov:JODY MAURERP 02/08/25 Ciprofloxacin Hcl (Cipro) 500 Mg Tab, 1 TAB PO BID for 10 Days, #20 TAB Prov:JODY MAURER 02/08/25 Ondansetron Odt 4MG Tab (ZOFRAN PO) 4 Mg Tb, 4 MG PO TIDPRN PRN for 5 Days, #15 TAB 0 Refills ODT TAB-DISSOLVE IN MOUTH, THEN SWALLOW Prov:BRUCE SAENZ MD 09/06/24 Hydrocodone-Acetaminophen (Hydrocodone Bitartrate/AC 10-325 mg) 1 Tab Tab, 1 TAB PO TIDPRN PRN for 7 Days, #21 TAB Prov:BRUCE SAENZ MD 09/06/24 Sulfamethoxazole-Trimethoprim (Bactrim) 1 Tab Tab, 1 TAB PO BID for 14 Days, #28 TAB 0 Refills Prov:BRUCE SAENZ MD 09/06/24 Reported Medications Metoprolol Tartrate (LOPRESSOR TABLET) 50 Mg Tb, 1 TAB PO BID 07/08/24 Aspirin (Aspirin) 325 Mg Tab, 1 TAB PO DAILY, #30 TAB 5 Refills 07/08/24 Atorvastatin Calcium (ATORVASTATIN CALCIUM) 40 Mg Tab, 1 TAB PO DAILY, #30 TAB 5 Refills 07/08/24 Metformin Hydrochloride (Metformin Hcl) 500 Mg Tab, PO 07/08/24 Information Source: Patient Mode of Arrival: Ambulatory Severity: Moderate Inability to void: Moderate Timing: Days Duration: Since onset Prehospital treatment: None Onset: Spontaneous Symptoms: Other (Clotted urine from nephrostomy site) History of: Kidney stone Location: Abdomen associated signs and symptoms: Abdominal Pain, Nausea, Other (infected nephrostomy tube) Past Medical History PAST MEDICAL HISTORY: CKF, DM, Kidney Stones Past Medical History (Other): Patient has a history of kidney stones, renal disease and has a nephrostomy that has been in place for 1-1/2 years. Surgical History: CABG, PTCA Family History Family History: Reviewed,noncontributory to illness Social History Smoker: Non-Smoker Alcohol: Denies ETOH Use Drugs: Denies Drug Use Lives In: Home Constitutional: reports: fatigue; denies: chills, diaphoresis, fever, malaise, sweats, weakness, others EENTM: denies: blurred vision, double vision, ear bleeding, ear discharge, ear drainage, ear pain, ear ringing, eye pain, eye redness, hearing loss, mouth pain, mouth swelling, nasal discharge, nose bleeding, nose congestion, nose pain, photophobia, tearing, throat pain, throat swelling, voice changes, others Respiratory: denies: cough, hemoptysis, orthopnea, SOB at rest, shortness of breath, SOB with excertion, stridor, wheezing, others Cardiovascular: denies: chest pain, dizzy spells, diaphoresis, Dyspnea on exertion, edema, irregular heart beat, left arm pain, lightheadedness, palpitations, PND, syncope, others Gastrointestinal: denies: abdomen distended, abdominal pain, blood streaked bowels, constipated, diarrhea, dysphagia, difficulty swallowing, hematemesis, melena, nausea, poor appetite, poor fluid intake, rectal bleeding, rectal pain, vomiting, others Genitourinary: reports: others (infected nephrostomy tube ); denies: burning, dysuria, flank pain, frequency, hematuria, incontinence, penile discharge, penile sore, pain, testicle pain, testicle swelling, urgency Neurological: denies: dizziness, fainting, headache, left sided numbness, left sided weakness, numbness, paresthesia, pre-existing deficit, right sided numbness, right sided weakness, seizure, speech problems, tingling, tremors, weakness, others Musculoskeletal: denies: back pain, gout, joint pain, joint swelling, muscle pain, muscle stiffness, neck pain, others Integumetry: denies: bruises, change in color, change in hair/nails, dryness, laceration, lesions, lumps, rash, wounds, others Allergic/Immunocompromised: denies: Difficulty Healing, Frequent Infections, Hives, Itching, others Hematologic/Lymphatic: denies: anemia, blood clots, easy bleeding, easy bruising, swollen glands, others Endocrine: denies: excessive hunger, excessive sweating, excessive thirst, excessive urination, flushing, intolerance to cold, intolerance to heat, unexplained weight gain, unexplained weight loss, others Psychiatric: denies: anxiety, bipolar disorder, depression, hopeless, panic disorder, schizophrenia, sleepless, suicidal, others All Other Systems: Reviewed and Negative Physical Exam General Appearance: Moderate Distress (Due to a nephrostomy site pain.), Normal HEENT: Normal ENT Inspection, Pharynx Normal, TMs Normal Neck: Full Range of Motion, Non-Tender, Normal, Normal Inspection Respiratory: Chest Non-Tender, Lungs Clear, No Accessory Muscle Use, No Respiratory Distress, Normal Breath Sounds Cardiovascular: No Edema, No JVD, No Murmur, No Gallop, Normal Peripheral Pulses, Regular Rate/Rhythm Breast Exam: Deferred Gastrointestinal: Other (Patient displays erythema and edema in her around the nephrostomy site. Urine collection bag reveals cloudy urine.) Genitalia: Deferred Pelvic: Deferred Rectal: Deferred Extremities: Normal capillary refill, No pedal edema Neurologic: Alert Cerebellar Function: NOT DONE Reflexes: NOT DONE Skin: Dry, Normal Color, Warm Lymphatic: No Adenopathy Was a procedure done? Was a procedure done?: No Differential Diagnosis Kidney stone (Female): Other (Occlusive kidney stone, UTI, sepsis, electrolyte abnormality, hypertensive urgency) Penile/Scrotal: UTI, Urolithiasis X-Ray, Labs, Meds, VS Vital Signs Date Time Temp Pulse Resp B/P (MAP) Pulse Ox O2 Delivery O2 Flow Rate FiO2 08/01/25 16:24 97.9 108 17 177/111 96 97.9 Lab Test 08/01/25 17:59 9/27/25 17:15 Range/Units White Blood Count 9.8 4.4-10.8 10^3/uL Red Blood Count 4.80 4.5-5.90 10^6/uL Hemoglobin 12.8 L 13.5-17.5 g/dL Hematocrit 38.0 L 41.0-53.0 % Mean Corpuscular Volume 79.2 L 80.0-100.0 fL Mean Corpuscular Hemoglobin 26.6 L 28.0-32.0 pg Mean Corpuscular Hemoglobin Concent 33.6 32.0-36.0 g/dL Red Cell Distribution Width 16.2 H 11.8-14.3 % Platelet Count 475 H 140-450 10^3/uL Mean Platelet Volume 8.1 6.9-10.8 fL Neutrophils (%) (Auto) 65.7 37.0-80.0 % Lymphocytes (%) (Auto) 18.2 10.0-50.0 % Monocytes (%) (Auto) 9.1 0.0-12.0 % Eosinophils (%) (Auto) 5.8 0.0-7.0 % Basophils (%) (Auto) 1.2 0.0-2.0 % Neutrophils # (Auto) 6.4 1.6-8.6 10 ^3/uL Lymphocytes # (Auto) 1.8 0.4-5.4 10 ^3/uL Monocytes # (Auto) 0.9 0-1.3 10 ^3/uL Eosinophils # (Auto) 0.6 0-0.8 10 ^3/uL Basophils # (Auto) 0.1 0-0.2 10 ^3/uL Nucleated Red Blood Cells 0.1 % Sodium Level 136 136-145 mmol/L Potassium Level 4.2 3.5-5.1 mmol/L Chloride Level 103 98-107 mmol/L Carbon Dioxide Level 20 20-31 mmol/L Anion Gap 13 5-15 Blood Urea Nitrogen 12 9-23 mg/dL Creatinine 1.11 0.700-1.30 mg/dL Glomerular Filtration Rate Calc 78 >90 mL/min BUN/Creatinine Ratio 10.8 10.0-20.0 Serum Glucose 285 H 74-106 mg/dL Lactic Acid Level 2.2 *H 0.4-2.0 mmol/L Calcium Level 10.8 H 8.7-10.4 mg/dL Urine Color Light-orange Yellow Urine Clarity Ex.turbid Clear Urine pH 6.0 5.0-9.0 Urine Specific [place] 1.044 H 1.001-1.035 Urine Protein 2+ H Negative Urine Ketones Negative Negative Urine Blood 3+ H Negative /uL Urine Nitrite Negative Negative Urine Bilirubin Negative Negative Urine Urobilinogen Normal Negative mg/dL Urine Leukocyte Esterase 3+ Negative /uL Urine RBC 970 0 - 3 /hpf Urine WBC Clumps Present None Seen /hpf Urine Microscopic WBC 905 H 0-3 /HPF Urine Squamous Epithelial Cells Few <5 /hpf Urine Calcium Oxalate Crystals Many None Seen Urine Bacteria None seen None Seen /hpf Urine Mucus Few None Seen Urine Glucose 4+ H Normal mg/dL Current Medications Medications (Trade) Dose Ordered Sig/Pepe Route Start Time Stop Time Status Last Admin Acetaminophen/ Hydrocodone Bitart ([place] 10/325MG Tab) 1 tab ONCE ONCE PO 08/01/25 17:45 08/01/25 17:46 DC 08/01/25 19:14 Ondansetron HCl (Zofran Po) 4 mg ONCE ONCE PO 08/01/25 17:45 08/01/25 17:46 DC 08/01/25 19:14 X-Ray, Labs, Meds, VS Comment All studies performed the ED were evaluated by me personally. Serum studies revealed a hyperglycemic state as well as an elevated lactic acid. Urinalysis confirmed a urinary tract infection of significance. Due to the patient's noncompliance history as well as poorly controlled hypertensive concerns. Patient will be admitted for IV antibiotics to address his substantial urinary tract infection as well as a cardiac consultation with respect to poorly controlled hypertension. Images Reviewed?: Images reviewed and evaluated by me Time of 1ST Reevaluation: 19:37 Reevaluation 1ST: Improved Consultation: PCP, Cardiology, Urology Patient Education/Counseling: Diagnosis, Treatment Family Education/Counseling: Diagnosis, Treatment, No Family Present Medical Screening: No EMC Exist At This Time SEPSIS Sepsis Screen Date sepsis recognized/suspect: Aug 01, 2025 Time Sepsis recognized/suspect: 1629 Recent Procedure: No On Antibiotic Therapy: No Respiratory Rate >20: No Heart Rate >90: No Temp<36 C (96.8 F) or >38.3 C: No SBP <90 or MAP <65 mmHG: No New Acute Mental Status Change: No Is the patient on CPAP, BIPAP,: No Physician Orders Blood Culture (08/01/25 17:41) Urine Bacterial Culture (08/01/25 17:41) Sodium Chloride 0.9% (08/01/25 19:15) Ceftriaxone 1gm/50ml (Rocephin) (08/01/25 19:15) Heplock Iv (08/01/25 ) Electrocardigram (08/01/25 19:16) Vital Signs Date Time Temp Pulse Resp B/P (MAP) Pulse Ox O2 Delivery O2 Flow Rate FiO2 08/01/25 16:24 97.9 108 17 177/111 96 97.9 Laboratory Tests Test 08/01/25 17:59 Lactic Acid Level 2.2 mmol/L (0.4-2.0) *H White Blood Count 9.8 10^3/uL (4.4-10.8) Medications Medications Dose Ordered Sig/Pepe Route Start Time Stop Time Status Last Admin Dose Admin Acetaminophen/ Hydrocodone Bitart 1 tab ONCE ONCE PO 08/01/25 17:45 08/01/25 17:46 DC 08/01/25 19:14 Ondansetron HCl 4 mg ONCE ONCE PO 08/01/25 17:45 08/01/25 17:46 DC 08/01/25 19:14 Departure 1 Departure Time of Disposition: 19:38 Impression: Primary Impression: Hypertensive urgency Additional Impressions: Urinary tract infection Hyperglycemia due to diabetes mellitus Elevated lactic acid level Disposition: ADMITTED INPATIENT Condition: Fair Discharged With: Self Critical Care Note Critical Care Time?: No Stability Stability form required: No Heart Score Heart Score: Heart Score Response (Comments) Value History N/A 0 EKG N/A 0 Age N/A 0 Risk Factors N/A 0 Troponin N/A 0 Total 0 I personally scribed for ALEXA ZHENG PAC ([email or web address]) on 08/01/25 at 17:46. Electronically submitted by Megan Sutherland ([employer]). I personally scribed for ALEXA ZHENG PAC ([email or web address]) on 08/01/25 at 17:57. Electronically submitted by Megan Sutherland ([employer]). ALEXA ZHENG PAC Aug 01, 2025 17:46
[2025-08-01 18:22] LABS: Hemoglobin 12.8 g/dL (13.5-17.5)
[2025-08-01 18:24] LABS: Hematocrit 38.0 % (41.0-53.0); Mean Corpuscular Hemoglobin 26.6 pg (28.0-32.0); Mean Corpuscular Volume 79.2 fL (80.0-100.0); Nucleated Red Blood Cells % 0.1 %
[2025-08-01 18:30] LABS: Urine Protein, UAD 2+ (Negative); Urine WBC Clumps PRESENT /hpf (None Seen)
[2025-08-01 18:32] LABS: Chloride 103 mmol/L (98-107); Potassium 4.2 mmol/L (3.5-5.1); Sodium 136 mmol/L (136-145)
[2025-08-01 18:33] LABS: Anion Gap 13 (5-15)
[2025-08-01 18:39] LABS: BUN/Creatinine Ratio 10.8 (10.0-20.0); Blood Urea Nitrogen 12 mg/dL (9-23)
[2025-08-01 18:47] LABS: Calcium 10.8 mg/dL (8.7-10.4); Carbon Dioxide 20 mmol/L (20-31); Glucose 285 mg/dL (74-106)
[2025-08-01 19:00] LABS: Lactic Acid w/Reflex 2.2 mmol/L (0.4-2.0)
[2025-08-01] MEDS: HYDROcodone-ACET 10/325MG TAB PO ONE (19:14)
[2025-08-01] MEDS: ONDANSETRON ODT 4 MG TAB PO ONE (19:14)
[2025-08-01] MEDS: CIPROFLOXACIN HCL 500 MG TAB PO ONE (19:38)
[2025-08-01] MEDS: SODIUM CHLORIDE 0.9% 1,000 ML IV ONE (19:39)
[2025-08-01] MEDS: MORPHINE SULFATE INJ 2 MG/ml SYRG IV ONE (21:00)
[2025-08-01] MEDS: SODIUM CHLORIDE 0.9% 1,000 ML IV SCH (21:15)
[2025-08-01] MEDS ORDERED: HYDROcodone-ACET 5/325MG TAB PO PRN (21:15)
[2025-08-01 21:31] LABS: Cholesterol 138 mg/dL (< 200); HDL Cholesterol 46 mg/dL (40-59)
[2025-08-01 21:33] VITALS: PULSE 84; RESP 19; O2SAT 99
[2025-08-01 21:41] LABS: Triglycerides 336 mg/dL (< 150)
--- NOTE | 2025-08-01 21:42 | DVHHPRES ---
History of Present Illness Resident Creating Document: ELIAZAR TORO RESIDENT History of Present Illness This is a 55-year-old male with past medical history of hypertension, type 2 diabetes, dyslipidemia, triple bypass and coronary artery disease with four stents placed. Patient presented to the ED due to urinary retention associated with fever/chills and burning sensation when peeing. Patient is a poor historian and states that he was treated at an assisted living facility for complicated UTI with IV antibiotics and was sent home. Afterwards he states that he received a call from [facility] stating that he needed to go back to a nearest hospital due to positive urine bacterial culture and blood cultures. Patient states that he has been having fever and chills for the past three days and that the urinary bag has been collecting turbid whitish urine with bad other for the past three days. Patient also reports dysuria and burning sensation while urinating. Patient has a nephrostomy tube in the right kidney that has been placed for 1.5 years. Patient states that he has a right- sided staghorn calculi and apparently another calculi in the bladder. Patient states that he was supposed to have urologic surgery yesterday but surgery was postponed due to infection. On admission patient was tachycardic with elevated lactic acid and borderline WBC. Patient upon examination has right-sided costovertebral angle tenderness and pain to palpation at the level of the bladder rated as 7/10 on the pain scale. We will continue IV fluids, start IV antibiotic, ordered CT of the abdomen and pelvis without contrast and placed urology consultation. Home medications: [id number] mg daily, atorvastatin 40 mg daily, [place] PRN, metformin 500 mg b.i.d., metoprolol tartrate 50 mg b.i.d. Surgical history: Triple bypass 1.5 year ago Social history: Reports quitting cigarette smoking more than 20 years ago, reports doing marijuana but no other additional drugs and no alcohol intake. Cardiovascular: CAD, HTN, hyperipidemia Endocrine: Diabetes Past Surgical History: CABG Family History: None Smoke: Quit (20 YEARS AGO) ALCOHOL: none Drugs: Marijuana Lives: with Family Domestic Violence: Neg Review of Systems Constitutional: Yes: Fever, Chills; No: Sweats, Weakness, Malaise, Other Eyes: No: Pain, Vision change, Conjunctivae inflammation, Eyelid inflammation, Other, Redness ENT: No: Ear pain, Ear discharge, Nose pain, Nose discharge, Nose congestion, Mouth pain, Mouth swelling, Throat pain, Throat swelling, Other Respiratory: No: Cough, Dry, Shortness of breath, SOB with excertion, Wheezing, Hemoptysis, Pleuritic Pain, Sputum, Wheezing, Other Cardiovascular: No: Chest Pain, Palpitations, Orthopnea, Paroxysmal Noc. Dyspnea, Edema, Lt Headedness, Other Gastrointestinal: No: Nausea, Vomiting, Abdominal Pain, Diarrhea, Constipation, Melena, Hematochezia, Other Genitourinary: Dysuria, Retention, Other (BURNING SENSATION WHILE PEING) Musculoskeletal: No: other, neck pain, shoulder pain, arm pain, back pain, hand pain, leg pain, foot pain Skin: No: Rash, Lesions, Jaundice, Bruising, Other Neurological: No: Weakness, Numbness, Incoordination, Change in speech, Confusion, Seizures, Other Allergies: Coded Allergies: Penicillins (Verified Allergy, Unknown, 07/07/24) Medications Current Medications Medications Dose Ordered Sig/Pepe Route Start Time Stop Time Status Last Admin Dose Admin Sodium Chloride 1,000 ml @ 60 mls/hr [id number] IV 08/01/25 21:15 UNV Acetaminophen/ Hydrocodone Bitart 1 tab Q4HP PRN PO 08/01/25 21:15 UNV Piperacillin Sod/ Tazobactam Sod 100 ml @ 100 mls/hr Q6HR IV 08/02/25 00:00 UNV Exam Vital Signs Vital Signs Date Time Temp Pulse Resp B/P (MAP) Pulse Ox O2 Delivery O2 Flow Rate FiO2 08/01/25 19:38 154/92 08/01/25 16:24 97.9 108 17 96 97.9 General Appearance: Alert, Oriented X3, Cooperative, No acute distress HEENT: Atraumatic, PERRLA, EOMI, Mucous membr. moist/pink Respiratory: Clear to auscultation, Normal air movement Cardiovascular: Regular rate, Normal S1, Normal S2, No murmurs Abdominal: Normal bowel sounds, Soft, No hepatospenomegaly, No masses, Other (THERE IS TENDERNESS TO PALPATION IN THE RIGHT LOWER BACK WITH POSITIVE RIGHT- SIDED COSTOVERTEBRAL ANGLE TENDERNESS. THERE IS ALSO PAIN TO PALPATION OF THE LEVEL OF THE BLADDER.) Extremities: No clubbing, No cyanosis, No edema, Normal pulses, No tenderness/swelling Skin: No rashes, No breakdown, No significant lesion Neuro: Normal speech, Strength at 5/5 X4 ext, Normal tone, Sensation intact, Cranial nerves 3-12 NL, Reflexes 2+, Other (PATIENT UNABLE TO WALK AT THIS POINT DUE TO SEVERE RIGHT-SIDED BACK PAIN.) Psych/Mental Status: Mental status NL, Mood NL Labs/Xrays Labs Test 08/01/25 20:10 08/01/25 17:59 08/01/25 17:15 Range/Units Lactic Acid Level 2.4 *H 0.4-2.0 mmol/L White Blood Count 9.8 4.4-10.8 10^3/uL Red Blood Count 4.80 4.5-5.90 10^6/uL Hemoglobin 12.8 L 13.5-17.5 g/dL Hematocrit 38.0 L 41.0-53.0 % Mean Corpuscular Volume 79.2 L 80.0-100.0 fL Mean Corpuscular Hemoglobin 26.6 L 28.0-32.0 pg Mean Corpuscular Hemoglobin Concent 33.6 32.0-36.0 g/dL Red Cell Distribution Width 16.2 H 11.8-14.3 % Platelet Count 475 H 140-450 10^3/uL Mean Platelet Volume 8.1 6.9-10.8 fL Neutrophils (%) (Auto) 65.7 37.0-80.0 % Lymphocytes (%) (Auto) 18.2 10.0-50.0 % Monocytes (%) (Auto) 9.1 0.0-12.0 % Eosinophils (%) (Auto) 5.8 0.0-7.0 % Basophils (%) (Auto) 1.2 0.0-2.0 % Neutrophils # (Auto) 6.4 1.6-8.6 10 ^3/uL Lymphocytes # (Auto) 1.8 0.4-5.4 10 ^3/uL Monocytes # (Auto) 0.9 0-1.3 10 ^3/uL Eosinophils # (Auto) 0.6 0-0.8 10 ^3/uL Basophils # (Auto) 0.1 0-0.2 10 ^3/uL Nucleated Red Blood Cells 0.1 % Sodium Level 136 136-145 mmol/L Potassium Level 4.2 3.5-5.1 mmol/L Chloride Level 103 98-107 mmol/L Carbon Dioxide Level 20 20-31 mmol/L Anion Gap 13 5-15 Blood Urea Nitrogen 12 9-23 mg/dL Creatinine 1.11 0.700-1.30 mg/dL Glomerular Filtration Rate Calc 78 >90 mL/min BUN/Creatinine Ratio 10.8 10.0-20.0 Serum Glucose 285 H 74-106 mg/dL Calcium Level 10.8 H 8.7-10.4 mg/dL Urine Color Light-orange Yellow Urine Clarity Ex.turbid Clear Urine pH 6.0 5.0-9.0 Urine Specific [place] 1.044 H 1.001-1.035 Urine Protein 2+ H Negative Urine Ketones Negative Negative Urine Blood 3+ H Negative /uL Urine Nitrite Negative Negative Urine Bilirubin Negative Negative Urine Urobilinogen Normal Negative mg/dL Urine Leukocyte Esterase 3+ Negative /uL Urine RBC 970 0 - 3 /hpf Urine WBC Clumps Present None Seen /hpf Urine Microscopic WBC 905 H 0-3 /HPF Urine Squamous Epithelial Cells Few <5 /hpf Urine Calcium Oxalate Crystals Many None Seen Urine Bacteria None seen None Seen /hpf Urine Mucus Few None Seen Urine Glucose 4+ H Normal mg/dL SEPSIS Sepsis Screen Date sepsis recognized/suspect: Aug 01, 2025 Time Sepsis recognized/suspect: 1630 Recent Procedure: No On Antibiotic Therapy: No Respiratory Rate >20: No Heart Rate >90: No Temp<36 C (96.8 F) or >38.3 C: No SBP <90 or MAP <65 mmHG: No New Acute Mental Status Change: No Is the patient on CPAP, BIPAP,: No Physician Orders Blood Culture (08/01/25 17:41) Urine Bacterial Culture (08/01/25 17:41) Heplock Iv (08/01/25 ) Electrocardigram (08/01/25 19:16) Admit (08/01/25 21:09) Code Status (08/01/25 21:09) Vital Signs .PER UNIT PROTOCOL (08/01/25 21:09) Review Orders With Adm. (08/01/25 21:09) Encourage Activity As Tolerate (08/01/25 21:09) Consistent Carb([facility])Diabetes (08/02/25 Breakfast) Sodium Chloride 0.9% (08/01/25 21:15) Notify Md Of Changes From Base (08/01/25 21:09) Advance Directive (08/01/25 21:09) Basic Metabolic Panel (08/02/25 04:00) Complete Blood Count (08/02/25 04:00) Lipid Panel (08/01/25 21:09) Patient Condition (08/01/25 21:09) Allergies (08/01/25 21:09) Hydrocodone-Acet 5/325mg Tab ([place] 5/32 (08/01/25 21:15) Drug Screen (08/01/25 21:09) Hemoglobin A1c (08/01/25 21:09) Piperacillin-Tazo 4.5gm (Zosyn 4.5gm/100 (08/02/25 00:00) * Urology Consult (08/01/25 21:17) Ct Ab Pel Wo Con-No Oral Or Iv (08/01/25 21:18) Vital Signs Date Time Temp Pulse Resp B/P (MAP) Pulse Ox O2 Delivery O2 Flow Rate FiO2 08/01/25 19:38 154/92 08/01/25 16:24 97.9 108 17 177/111 96 97.9 Laboratory Tests Test 08/01/25 17:59 08/01/25 20:10 Lactic Acid Level 2.2 mmol/L (0.4-2.0) *H 2.4 mmol/L (0.4-2.0) *H White Blood Count 9.8 10^3/uL (4.4-10.8) Medications Medications Dose Ordered Sig/Pepe Route Start Time Stop Time Status Last Admin Dose Admin Acetaminophen/ Hydrocodone Bitart 1 tab ONCE ONCE PO 08/01/25 17:45 08/01/25 17:46 DC 08/01/25 19:14 1 TAB Ceftriaxone Sodium 50 ml @ 100 mls/hr ONCE ONCE IV 08/01/25 19:15 08/01/25 19:44 DC 08/01/25 19:39 100 MLS/HR Ciprofloxacin 750 mg ONCE ONCE PO 08/01/25 19:15 08/01/25 19:17 DC 08/01/25 19:38 750 MG Clonidine HCl 0.2 mg ONCE ONCE PO 08/01/25 19:30 08/01/25 19:31 DC 08/01/25 19:38 0.2 MG Ondansetron HCl 4 mg ONCE ONCE PO 08/01/25 17:45 08/01/25 17:46 DC 08/01/25 19:14 4 MG Sodium Chloride 1,000 ml @ 1,000 mls/hr Q1H ONCE IV 08/01/25 19:15 08/01/25 20:14 DC 08/01/25 19:39 1,000 MLS/HR Assessment/Plan Assessment/Plan Assessment/plan Sepsis likely due to complicated UTI Possible right-sided nephrostomy tube infection History of right-sided staghorn calculi and bladder calculi Primary hypertension Type 2 diabetes mellitus Hyperlipidemia History of CABG, coronary artery disease with four stents placed Plan -ordered EKG -ordered CT scan of the abdomen and pelvis without contrast, to determine position of the right-sided nephrostomy tube, evaluate for obstruction. -urinalysis came back positive suggesting UTI -ordered urine bacterial culture and blood cultures -start IV Zosyn 4.5 g q.6 -continue [id number] mg daily -continue atorvastatin 40 mg daily -start metoprolol succinate 50 mg daily -start mild sliding scale insulin -start [id number] units daily -urology consultation placed Goals of care discussed with the patient at bedside, full code Plan discussed with Dr. Garcia Plan discussed with: Patient My Orders Orders - ELIAZAR TORO Procedure Category Date Status Time Admit ADMIT 08/01/25 Transmitted 21:09 Code Status CODE 08/01/25 Transmitted 21:09 Vital Signs MISAEL 08/01/25 In Process 21:09 Review Orders With MISAEL 08/01/25 In Process Adm. 21:09 Encourage Activity As MISAEL 08/01/25 In Process Tolerate 21:09 Consistent DIET 08/02/25 Transmitted Carb(Ccho)Diabetes Breakfast Sodium Chloride 0.9% PHA 08/01/25 Logged 21:15 Notify Of Changes MISAEL 08/01/25 In Process From Base 21:09 Advance Directive MISAEL 08/01/25 In Process 21:09 Basic Metabolic Panel LAB 08/02/25 Verified 04:00 Complete Blood Count LAB 08/02/25 Verified 04:00 Lipid Panel LAB 08/01/25 In Process 21:09 Patient Condition ORDERS 08/01/25 Transmitted 21:09 Allergies MISAEL 08/01/25 In Process 21:09 Hydrocodone-Acet PHA 08/01/25 Logged 5/325mg Tab ([place] 21:15 Drug Screen LAB 08/01/25 Logged 21:09 Hemoglobin A1c LAB 08/01/25 In Process 21:09 Piperacillin-Tazo PHA 08/02/25 Logged 4.5gm (Zosyn 4.5gm/100 00:00 * Urology Consult CONS 08/01/25 Transmitted 21:17 Ct Ab Pel Wo Con-No CT 08/01/25 Transmitted Oral Or Iv 21:18 Date of Service: Aug 01, 2025 ([place] Patient) Billing Provider: JOJO GARCIA MD Common Visit Codes: [id number] INP/OBS CARE (HIGH) Secondary Visit Codes: [id number] CARE PLAN 30 MINUTES ELIAZAR TORO RESIDENT Aug 01, 2025 21:42 JOJO GARCIA MD Aug 02, 2025 12:56
[2025-08-01] MEDS ORDERED: DEXTROSE (50%) 50ML SYRG IV PRN (21:45)
[2025-08-01] MEDS: ACCU-CHEK COMFORT CURVE STRIP VI SCH (22:00)
[2025-08-01] MEDS: InsuLIN REG 1unit/0.01ml Soln (100units/ml) SC SCH (22:00)
--- NOTE | 2025-08-01 22:23 | DVH ---
Exam: CT CT AB PEL WO CON-NO ORAL OR IV History: R/O right sided nephrostomy tube obstruction, staghorn calc Comparison Study: CT CT AB PEL WO CON-NO ORAL OR IV on DOS: 02/08/25, CT CT AB PEL WO CON-NO ORAL OR IV on DOS: 09/03/24, CT CT AB PEL WITH IV CON ONLY on DOS: 07/07/24 Technique: Multidetector spiral CT of the abdomen was performed from lung bases to pubic symphysis. I maging was performed without IV contrast. Axial, coronal and sagittal multiplanar reformats were obta ined from the axial data set by the technologist. Radiation dose : 1. Abdomen/Pelvis: CTDIvol 14.64 mGy, DLP 962.11 mGy*cm. Findings: Evaluation of solid organs is limited due to lack of intravenous contrast use. Lung Bases: No acute or significant lung base finding. Normal heart size. No pleural or pericardial effusion. Liver: The liver is normal in size. No focal lesions. Gallbladder and biliary Tree: Unremarkable Spleen: Unremarkable Pancreas: The pancreas is grossly normal in appearance. Adrenal Glands: Unremarkable Kidneys: Percutaneous nephro ureterostomy tube on the right. No hydronephrosis. This appears normally positioned. Large staghorn calculus within the right renal pelvis again noted. Bladder: Grossly unremarkable for degree of distention. Bowel: The stomach is grossly normal in appearance. Small bowel and colon are normal in caliber and d istribution. Normal appendix is visualized in the right lower quadrant without findings of appendicit is. Ascites: Absent Lymphadenopathy: No mesenteric, retroperitoneal or periportal lymphadenopathy. Abdominal wall and Mesentery: Unremarkable. Vasculature: The visualized abdominal aorta is normal in size and caliber. Evaluation of abdominal a nd pelvic vessels is limited due to lack of intravenous contrast. Pelvic Organs: Unremarkable Musculoskeletal: No aggressive focal bony lesions, acute fractures or dislocation. IMPRESSION: Right-sided nephrostomy tube appears well positioned. No hydronephrosis or other acute abnormality. Radiation optimization: All CT scans at this facility use at least one of these dose optimization bernardo hniques: automated exposure control mA and/or kV adjustment per patient size (includes targeted exam s where dose is matched to clinical indication) or iterative reconstruction.
[2025-08-01 23:07] VITALS: BP 150/96; PULSE 86; RESP 18; TEMP 98.5; O2SAT 99
[2025-08-01] MEDS: HYDROcodone-ACET 5/325MG TAB PO PRN (23:47)
[2025-08-02] VITALS (7 sets, daily range): BP systolic 145–179; BP diastolic 85–110; PULSE 76–88; RESP 17–20; TEMP 97.6–99.1; O2SAT 94–99
[2025-08-02] MEDS: KETOROLAC TROMETH 30 MG/ML 1ML VIAL IV ONE (02:15)
[2025-08-02] MEDS: INSULIN LANTUS (GLARGINE) 1 /0.01ml (100units/ml) SC SCH (05:58)
--- NOTE | 2025-08-02 10:33 | DVHPNRES ---
Progress Note Date Seen: Aug 02, 2025 Resident Creating Document: HERMILA ABARCA RESIDENT Medical Necessity Reason Pt with a Central, PICC or Fol: No Subjective Review of Systems This is a 55-year-old male with past medical history of hypertension, type 2 diabetes, dyslipidemia, triple bypass and coronary artery disease with four stents placed. Patient presented to the ED due to urinary retention associated with fever/chills and burning sensation when peeing. Patient is a poor historian and states that he was treated at an assisted living facility for complicated UTI with IV antibiotics and was sent home. Afterwards he states that he received a call from [facility] stating that he needed to go back to a nearest hospital due to positive urine bacterial culture and blood cultures. Patient states that he has been having fever and chills for the past three days and that the urinary bag has been collecting turbid whitish urine with bad odour for the past three days. Patient also reports dysuria and burning sensation while urinating. Patient has a nephrostomy tube in the right kidney that has been placed for 1.5 years. Last nephrostomy tube change was 1 month before at [facility].. Patient states that he has a right-sided staghorn calculi and apparently another calculi in the bladder. Patient states that he was supposed to have urologic surgery yesterday but surgery was postponed due to infection. Patient also reported he had several loose bowel movement, no blood in last week for couple of days. On admission patient was tachycardic with elevated lactic acid and borderline WBC. Patient upon examination has right-sided costovertebral angle tenderness and pain to palpation at the level of the bladder rated as 7/10 on the pain scale. We will continue IV fluids, start IV antibiotic, ordered CT of the abdomen and pelvis without contrast and placed urology consultation. Home medications: Smhtnig30 mg daily, atorvastatin 40 mg daily, [place] PRN, metformin 500 mg b.i.d., metoprolol tartrate 50 mg b.i.d. Surgical history: Triple bypass 1.5 year ago Social history: Reports quitting cigarette smoking more than 20 years ago, reports doing marijuana but no other additional drugs and no alcohol intake. Cardiovascular: CAD, HTN, hyperipidemia Endocrine: Diabetes Past Surgical History: CABG Family History: None Smoke: Quit (20 YEARS AGO) ALCOHOL: none Drugs: Marijuana Lives: with Family Domestic Violence: Neg Patient was seen today at bedside. Labs and chart reviewed. Patient reported ongoing burning pain when he pees, patient has a nephrostomy tube on right side with cloudy urine. Lower abdominal tenderness positive on palpation. Pending culture and blood culture, C diff. ordered bladder scan to rule out retention of urine. Patient's antibiotic Zosyn. Objective vital signs Vital Sign Date Time Temp Pulse Resp B/P (MAP) Pulse Ox O2 Delivery O2 Flow Rate FiO2 08/02/25 09:00 98.1 86 19 148/105 (119) 97 98.1 08/02/25 08:00 Room Air* 0 21 Total Intake and Output 08/01/25 08/01/25 08/02/25 15:00 23:00 07:00 Intake Total 600 ml Balance 600 ml medications Current Medications Medications Dose Ordered Sig/Pepe Route Start Time Stop Time Status Last Admin Dose Admin Piperacillin Sod/ Tazobactam Sod 100 ml @ 100 mls/hr Q8H IV 08/02/25 08:15 Metoprolol Succinate 50 mg DAILY PO 08/02/25 10:00 Acetaminophen/ Hydrocodone Bitart 1 tab Q6HP PRN PO 08/01/25 21:45 08/02/25 05:50 1 TAB Aspirin 81 mg DAILY PO 08/02/25 10:00 Atorvastatin Calcium 40 mg DAILY PO 08/02/25 10:00 Diagnostic Test (Pha) 1 strip ACHS 08/01/25 22:00 Insulin Human Regular ACHS SC 08/01/25 22:00 Dextrose 50 ml UD PRN IV 08/01/25 21:45 Insulin Glargine 15 units QAM SC 08/02/25 07:00 Sodium Chloride 1,000 ml @ 100 mls/hr Q10H IV 08/02/25 08:00 Examination General examination- awake, alert, oriented HEENT- PEERLA, no acute nasal discharge Cardiovascular- S1-S2 audible, rate and rhythm regular, no murmur Respiratory- CTAB, no wheeze or rhonchi Gastrointestinal-nontender, bowel sound+. Nondistended Musculoskeletal-no acute joint swelling or tenderness or redness Lower extremity- no leg edema Renal system-presence of right nephrostomy tube, right renal angle tenderness+, Neurological- cranial nerves intact, no acute dysarthria or dysphagia Psychiatry- denies depression or SI or HI Skin- no acute rash or purpura laboratory and microbiology Laboratory Tests 08/01/25 17:59 Test 08/01/25 17:59 Range/Units Serum Glucose 285 H 74-106 mg/dL Problem List/Assessment/Plan Problem List/Assessment/Plan Assessment and plan # Sepsis likely due to complicated UTI -urinalysis significant for UTI with leukocyte esterase 3+, WBC 905, RBC 970. # suspected pyelonephritis of the right kidney, Possible right-sided nephrostomy tube infection # hematuria # history of urinary bladder stone #History of right-sided staghorn calculi and bladder calculi -pending blood culture, urine culture -continue IV fluid as -on Zosyn IV as prescribed -ordered bedside bladder scan to rule out any retention of urine-no acute retention of urine #Primary hypertension -continue metoprolol succinate 50 mg p.o. daily -monitor blood pressure #Type 2 diabetes mellitus with hyperglycemia -continue saline Lantus and sliding scale as prescribed -metoprolol sugar as prescribed -continue IV fluids # CAD, History of CABG, coronary artery disease with four stents placed #Hyperlipidemia -aspirin 81 mg p.o. daily -atorvastatin 40 mg p.o. q.h.s. -metoprolol 50 mg p.o. daily -monitor blood pressure Goals of care, Code status full code; discussed with >15 minutes PUD prophylaxis: Pantoprazole DVT prophylaxis: SCD Plan discussed with Dr. Norton , nursing staff, Total time spent on patient evaluation, chart review, assessment and plan, discussion discussion >35 minutes Plan discussed with: Patient, Other (RN) My Orders My Orders Orders - HERMILA ABARCA RESIDENT Procedure Category Date Status Time Complete Blood Count LAB 08/02/25 Logged 07:57 Comprehensive LAB 08/02/25 Logged Metabolic Panel 07:57 Magnesium LAB 08/02/25 Logged 07:57 Lactic Acid W/ Reflex LAB 08/02/25 Logged Order 07:57 Vitamin B1 (Thiamine) LAB 08/02/25 Logged 07:59 Vitamin D, 25-Hydroxy LAB 08/02/25 Logged 07:59 Folate (Folic Acid) LAB 08/02/25 Logged 07:59 Thyroid Stimulating LAB 08/02/25 Logged Hormone 07:59 Sodium Chloride 0.9% PHA 08/02/25 In Process 08:00 Date of Service: Aug 02, 2025 Billing Provider: SANDRA NORTON MD Common Visit Codes: [id number] INP/OBS CARE(HIGH) HERMILA ABARCA RESIDENT Aug 02, 2025 10:33 SANDRA NORTON MD Aug 05, 2025 23:41
[2025-08-02 11:03] LABS: Hematocrit 35.6 % (41.0-53.0); Hemoglobin 11.9 g/dL (13.5-17.5); Mean Corpuscular Hemoglobin 26.5 pg (28.0-32.0); Mean Corpuscular Volume 79.4 fL (80.0-100.0); Nucleated Red Blood Cells % 0.1 %
[2025-08-02] MEDS: SODIUM CHLORIDE 0.9% 1,000 ML IV ONE (11:11)
[2025-08-02] MEDS: SODIUM CHLORIDE 0.9% 1,000 ML IV SCH (11:11)
[2025-08-02] MEDS: MORPHINE SULFATE INJ 2 MG/ml SYRG IV ONE (11:16)
[2025-08-02] MEDS: ATORVASTATIN 20 MG TAB PO SCH (11:16)
[2025-08-02] MEDS: PIPERACILLIN-TAZOB 3.375GM 100 ML IV SCH (11:17)
[2025-08-02] MEDS: METOPROLOL SUCCINATE XL 50 MG TAB PO SCH (11:17)
[2025-08-02 11:22] LABS: Alanine Aminotransferase 14 U/L (7-40); Albumin 4.5 g/dL (3.2-4.8); Anion Gap 12 (5-15); BUN/Creatinine Ratio 10.5 (10.0-20.0); Blood Urea Nitrogen 9 mg/dL (9-23); Calcium 10.4 mg/dL (8.7-10.4); Chloride 102 mmol/L (98-107); Potassium 4.2 mmol/L (3.5-5.1); Total Protein 7.1 g/dL (5.7-8.2)
[2025-08-02 11:23] LABS: Alkaline Phosphatase 134 U/L (46-116); Bilirubin, Total 0.3 mg/dL (0.2-1.0); Carbon Dioxide 20 mmol/L (20-31); Glucose 226 mg/dL (74-106); Magnesium 1.6 mg/dL (1.6-2.6); Sodium 134 mmol/L (136-145)
[2025-08-02 11:26] LABS: Lactic Acid w/Reflex 2.1 mmol/L (0.4-2.0)
[2025-08-02] MEDS: MORPHINE SULFATE INJ 2 MG/ml SYRG IM ONE (16:57)
[2025-08-02] MEDS: SODIUM CHLORIDE 0.9% 500 ML IV ONE (20:42)
[2025-08-02] MEDS: KETOROLAC TROMETH 30 MG/ML 1ML VIAL IV PRN (20:57)
[2025-08-02] MEDS: MORPHINE SULFATE INJ 2 MG/ml SYRG IV PRN (20:57)
[2025-08-02] MEDS: TAMSULOSIN HYDROCHLORIDE 0.4 MG CAP PO ONE (21:27)
[2025-08-02] MEDS: ACETAMINOPHEN 325 MG TAB PO PRN (22:40)
[2025-08-03] VITALS (8 sets, daily range): BP systolic 141–168; BP diastolic 83–106; PULSE 63–91; RESP 14–19; TEMP 97–98.4; O2SAT 94–98
[2025-08-03] MEDS: MORPHINE SULFATE INJ 2 MG/ml SYRG IV PRN (01:05)
[2025-08-03] MEDS: HYDROmorphone HCL 2 MG/ML VL/or syr IV PRN (05:12)
[2025-08-03] MEDS: PANTOPRAZOLE 40 MG TAB PO SCH (05:53)
[2025-08-03 06:08] LABS: Hematocrit 35.2 % (41.0-53.0); Hemoglobin 11.6 g/dL (13.5-17.5); Mean Corpuscular Hemoglobin 26.1 pg (28.0-32.0); Mean Corpuscular Volume 78.8 fL (80.0-100.0); Nucleated Red Blood Cells % 0.1 %
[2025-08-03 06:30] LABS: Alanine Aminotransferase 15 U/L (7-40); Albumin 4.4 g/dL (3.2-4.8); Alkaline Phosphatase 133 U/L (46-116); Anion Gap 13 (5-15); BUN/Creatinine Ratio 13.6 (10.0-20.0); Blood Urea Nitrogen 12 mg/dL (9-23); Calcium 10.1 mg/dL (8.7-10.4); Carbon Dioxide 20 mmol/L (20-31); Chloride 102 mmol/L (98-107); Glucose 192 mg/dL (74-106); Magnesium 1.6 mg/dL (1.6-2.6); Potassium 4.4 mmol/L (3.5-5.1); Sodium 135 mmol/L (136-145); Total Protein 6.5 g/dL (5.7-8.2)
[2025-08-03 06:38] LABS: Bilirubin, Total 0.3 mg/dL (0.2-1.0)
[2025-08-03] MEDS: PIPERACILLIN-TAZOB 3.375GM 100 ML IV SCH (10:18)
--- NOTE | 2025-08-03 10:41 | DVHPNRES ---
Progress Note Date Seen: Aug 03, 2025 Resident Creating Document: HERMILA ABARCA RESIDENT Medical Necessity Reason Pt with a Central, PICC or Fol: No Subjective Review of Systems This is a 55-year-old male with past medical history of hypertension, type 2 diabetes, dyslipidemia, triple bypass and coronary artery disease with four stents placed. Patient presented to the ED due to urinary retention associated with fever/chills and burning sensation when peeing. Patient is a poor historian and states that he was treated at an assisted living facility for complicated UTI with IV antibiotics and was sent home. Afterwards he states that he received a call from [facility] stating that he needed to go back to a nearest hospital due to positive urine bacterial culture and blood cultures. Patient states that he has been having fever and chills for the past three days and that the urinary bag has been collecting turbid whitish urine with bad odour for the past three days. Patient also reports dysuria and burning sensation while urinating. Patient has a nephrostomy tube in the right kidney that has been placed for 1.5 years. Last nephrostomy tube change was 1 month before at [facility].. Patient states that he has a right-sided staghorn calculi and apparently another calculi in the bladder. Patient states that he was supposed to have urologic surgery yesterday but surgery was postponed due to infection. Patient also reported he had several loose bowel movement, no blood in last week for couple of days. On admission patient was tachycardic with elevated lactic acid and borderline WBC. Patient upon examination has right-sided costovertebral angle tenderness and pain to palpation at the level of the bladder rated as 7/10 on the pain scale. We will continue IV fluids, start IV antibiotic, ordered CT of the abdomen and pelvis without contrast and placed urology consultation. Home medications: [id number] mg daily, atorvastatin 40 mg daily, [place] PRN, metformin 500 mg b.i.d., metoprolol tartrate 50 mg b.i.d. Surgical history: Triple bypass 1.5 year ago Social history: Reports quitting cigarette smoking more than 20 years ago, reports doing marijuana but no other additional drugs and no alcohol intake. Cardiovascular: CAD, HTN, hyperipidemia Endocrine: Diabetes Past Surgical History: CABG Family History: None Smoke: Quit (20 YEARS AGO) ALCOHOL: none Drugs: Marijuana Lives: with Family Domestic Violence: Neg Patient was seen today at bedside. Labs and chart reviewed. Patient reported feeling better today. Urine culture revealed E coli ESBL, discontinue Zosyn, started on meropenem. Patient was seen by Urology, recommendation reviewed and appreciated. Possible discharge tomorrow. Objective vital signs Vital Sign Date Time Temp Pulse Resp B/P (MAP) Pulse Ox O2 Delivery O2 Flow Rate FiO2 08/03/25 10:17 90 158/105 08/03/25 10:09 16 08/03/25 09:05 97.4 98 97.4 08/02/25 20:00 Room Air* 0 21 Total Intake and Output 08/02/25 08/02/25 08/03/25 15:00 23:00 07:00 Intake Total 100 ml 825 ml 1700 ml Output Total 700 ml Balance 100 ml 825 ml 1000 ml medications Current Medications Medications Dose Ordered Sig/Pepe Route Start Time Stop Time Status Last Admin Dose Admin Metoprolol Succinate 50 mg DAILY PO 08/02/25 10:00 08/03/25 10:17 50 MG Acetaminophen/ Hydrocodone Bitart 1 tab Q6HP PRN PO 08/01/25 21:45 08/03/25 04:49 1 TAB Aspirin 81 mg DAILY PO 08/02/25 10:00 08/03/25 10:13 81 MG Atorvastatin Calcium 40 mg DAILY PO 08/02/25 10:00 08/03/25 10:13 40 MG Diagnostic Test (Pha) 1 strip ACHS 08/01/25 22:00 Insulin Human Regular ACHS SC 08/01/25 22:00 Dextrose 50 ml UD PRN IV 08/01/25 21:45 Insulin Glargine 15 units QAM SC 08/02/25 07:00 Sodium Chloride 1,000 ml @ 100 mls/hr Q10H IV 08/02/25 08:00 08/02/25 11:11 100 MLS/HR Pantoprazole Sodium 40 mg DAILY@0600 PO 08/03/25 06:00 Tamsulosin HCl 0.4 mg QPM PO 08/03/25 18:00 Ketorolac Tromethamine 15 mg Q6HPRN PRN IV 08/02/25 20:15 08/07/25 20:14 08/03/25 02:20 15 MG Acetaminophen 325 mg Q4HP PRN PO 08/02/25 20:15 08/03/25 02:20 325 MG Hydromorphone HCl 0.5 mg Q4HPRN PRN IV 08/03/25 04:00 08/03/25 10:09 0.5 MG Piperacillin Sod/ Tazobactam Sod 100 ml @ 25 mls/hr Q6H IV 08/03/25 10:00 08/03/25 10:18 25 MLS/HR Examination General examination- awake, alert, oriented HEENT- PEERLA, no acute nasal discharge Cardiovascular- S1-S2 audible, rate and rhythm regular, no murmur Respiratory- CTAB, no wheeze or rhonchi Gastrointestinal-nontender, bowel sound+. Nondistended Musculoskeletal-no acute joint swelling or tenderness or redness Lower extremity- no leg edema Renal system-nephrostomy tube on right side Neurological- cranial nerves intact, no acute dysarthria or dysphagia Psychiatry- denies depression or SI or HI Skin- no acute rash or purpura laboratory and microbiology Laboratory Tests 08/03/25 05:13 Test 08/03/25 05:13 Range/Units Serum Glucose 192 H 74-106 mg/dL Microbiology Date/Time Source Procedure Growth Status 08/02/25 00:45 Nose MRSA Screen - Final Complete 08/01/25 17:59 Blood Blood Culture - Preliminary NO GROWTH AFTER 24 HOURS OF INCUBATION. Resulted 08/01/25 17:15 Voided Urine Urine Culture - Preliminary Resulted Problem List/Assessment/Plan Problem List/Assessment/Plan Assessment and plan # Sepsis likely due to complicated UTI-E coli ESBL -urinalysis significant for UTI with leukocyte esterase 3+, WBC 905, RBC 970. # suspected pyelonephritis of the right kidney, Possible right-sided nephrostomy tube infection # hematuria # history of urinary bladder stone #History of right-sided staghorn calculi and bladder calculi -blood culture no growth -Urine culture revealed E coli ESBL, -discontinued Zosyn, started on meropenem. -continue IV fluid as - bedside bladder scan to rule out any retention of urine-no acute retention of urine -status post Urology consult, Urology recommended-no urological intervention indicated, treat UTI, follow up at [facility] urology #Primary hypertension -continue metoprolol succinate 50 mg p.o. daily -monitor blood pressure #Type 2 diabetes mellitus with hyperglycemia -continue saline Lantus and sliding scale as prescribed -metoprolol sugar as prescribed -continue IV fluids # CAD, History of CABG, coronary artery disease with four stents placed #Hyperlipidemia -aspirin 81 mg p.o. daily -atorvastatin 40 mg p.o. q.h.s. -metoprolol 50 mg p.o. daily -monitor blood pressure Goals of care, Code status full code; discussed with >15 minutes PUD prophylaxis: Pantoprazole DVT prophylaxis: SCD Plan discussed with Dr. Norton , nursing staff, Total time spent on patient evaluation, chart review, assessment and plan, discussion discussion >35 minutes Plan discussed with: Patient, Other (RN) My Orders My Orders Orders - HERMILA ABARCA Procedure Category Date Status Time Lactic Acid W/ Reflex LAB 08/03/25 In Process Order 06:05 Date of Service: Aug 03, 2025 Billing Provider: SANDRA NORTON MD Common Visit Codes: [id number] INP/OBS CARE(HIGH) HERMILA ABARCA Aug 03, 2025 10:41 SANDRA NORTON MD Aug 06, 2025 00:05
--- NOTE | 2025-08-03 10:44 | DVHINCON2 ---
Date of service: Aug 03, 2025 Referring Physician hospitalist Reason for Consultation staghorn calculus PCN in place History of Present Illness History Source: Patient, RN Notes, MD Notes, Old Records Exam Limitations: No limitations HPI 55 yo patient known to urology practice for right staghorn and equivocal right renal function. He had attempted PCNL in 2021 but access was not sufficient for treatment. He is now under care of [facility] urology who ordered a NM renal scan 11/18/2024 which shows a split function of 19% right and 81% on the left. He is pending right nephrectomy. He does not want any urologist from this area to treat him. Creatinine is at baseline. No leukocytosis. Preliminary Ucx shows GNRs >100k CFU. On CT Right-sided nephrostomy tube appears well positioned. No hydronephrosis or other acute abnormality. Home Meds Active Scripts Hydrocodone-Acetaminophen (Hydrocodone Bitartrate/AC 5-325 mg) 1 Tab Tab, 1 TAB PO TID PRN, #12 TAB Prov:JODY MAURER CAREER DEVELOPMENT DIRECTOR 02/08/25 Ciprofloxacin Hcl (Cipro) 500 Mg Tab, 1 TAB PO BID for 10 Days, #20 TAB Prov:JODY MAURER CAREER DEVELOPMENT DIRECTOR 25 Ondansetron Odt 4MG Tab (ZOFRAN PO) 4 Mg Tb, 4 MG PO TIDPRN PRN for 5 Days, #15 TAB 0 Refills ODT TAB-DISSOLVE IN MOUTH, THEN SWALLOW Prov:BRUCE SAENZ MD 09/06/24 Hydrocodone-Acetaminophen (Hydrocodone Bitartrate/AC 10-325 mg) 1 Tab Tab, 1 TAB PO TIDPRN PRN for 7 Days, #21 TAB Prov:BRUCE SAENZ MD 09/06/24 Sulfamethoxazole-Trimethoprim (Bactrim) 1 Tab Tab, 1 TAB PO BID for 14 Days, #28 TAB 0 Refills Prov:BRUCE SAENZ MD 09/06/24 Reported Medications Metoprolol Tartrate (LOPRESSOR TABLET) 50 Mg Tb, 1 TAB PO BID 07/08/24 Aspirin (Aspirin) 325 Mg Tab, 1 TAB PO DAILY, #30 TAB 5 Refills 07/08/24 Atorvastatin Calcium (ATORVASTATIN CALCIUM) 40 Mg Tab, 1 TAB PO DAILY, #30 TAB 5 Refills 07/08/24 Metformin Hydrochloride (Metformin Hcl) 500 Mg Tab, PO 07/08/24 Past Medical History Cardiac: CAD, HTN, [place] Renal/: UTI Endocrine: IDDM Past Surgical History: CABG, Other (PCNL) Patient Family History: Patient reports no known family medical history. H&P Exam Vital Signs Vital Signs Date Time Temp Pulse Resp B/P (MAP) Pulse Ox O2 Delivery O2 Flow Rate FiO2 08/03/25 09:05 97.4 90 18 158/105 (122) 98 97.4 08/02/25 20:00 Room Air* 0 21 Labs/Xrays [place] [address] Ph: [phone] DIAGNOSTIC IMAGING Diagnostic Imaging Report : [id number] Signed PATIENT: MER LEWIS ACCT: [id number] UNIT: [id number] : 1970 LOC: OVERFLOW ROOM / BED: [facility] / A AGE / SEX: 55 / M ADM STATUS: ADM IN SERVICE 17 ORDERING PHYSICIAN: ELIAZAR TORO RESIDENT PROCEDURE(s): ABPL - CT AB PEL WO CON-NO ORAL OR IV REASON: R/O right sided nephrostomy tube obstruction, staghorn calc ORDER NUMBER(s): [id number], ACCESSION NUMBER(s): [id number] Exam: CT CT AB PEL WO CON-NO ORAL OR IV History: R/O right sided nephrostomy tube obstruction, staghorn calc Comparison Study: CT CT AB PEL WO CON-NO ORAL OR IV on DOS: 02/08/25, CT CT AB PEL WO CON-NO ORAL OR IV on DOS: 09/03/24, CT CT AB PEL WITH IV CON ONLY on DOS: 07/07/24 Technique: Multidetector spiral CT of the abdomen was performed from lung bases to pubic symphysis. Imaging was performed without IV contrast. Axial, coronal and sagittal multiplanar reformats were obtained from the axial data set by the technologist. Radiation dose : 1. Abdomen/Pelvis: CTDIvol 14.64 mGy, DLP 962.11 mGy*cm. Findings: Evaluation of solid organs is limited due to lack of intravenous contrast use. Lung Bases: No acute or significant lung base finding. Normal heart size. No pleural or pericardial effusion. Liver: The liver is normal in size. No focal lesions. Gallbladder and biliary Tree: Unremarkable Spleen: Unremarkable Pancreas: The pancreas is grossly normal in appearance. Adrenal Glands: Unremarkable Kidneys: Percutaneous nephro ureterostomy tube on the right. No hydronephrosis. This appears normally positioned. Large staghorn calculus within the right renal pelvis again noted. Bladder: Grossly unremarkable for degree of distention. Bowel: The stomach is grossly normal in appearance. Small bowel and colon are normal in caliber and distribution. Normal appendix is visualized in the right lower quadrant without findings of appendicitis. Ascites: Absent Lymphadenopathy: No mesenteric, retroperitoneal or periportal lymphadenopathy. Abdominal wall and Mesentery: Unremarkable. Vasculature: The visualized abdominal aorta is normal in size and caliber. Evaluation of abdominal and pelvic vessels is limited due to lack of intravenous contrast. Pelvic Organs: Unremarkable Musculoskeletal: No aggressive focal bony lesions, acute fractures or dislocation. IMPRESSION: Right-sided nephrostomy tube appears well positioned. No hydronephrosis or other acute abnormality. Radiation optimization: All CT scans at this facility use at least one of these dose optimization techniques: automated exposure control mA and/or kV adjustment per patient size (includes targeted exams where dose is matched to clinical indication) or iterative reconstruction. ATED BY: KERA SOUSA MD DICTATED DATE/TIME: 08/01/252220 SIGNED BY: KERA SOUSA MD SIGNED DATE/TIME: 08/01/252220 CC: Labs Test 08/03/25 09:56 08/03/25 05:13 08/02/25 17:15 08/02/25 10:16 Range/Units White Blood Count 7.4 4.4-10.8 10^3/uL Red Blood Count 4.46 L 4.5-5.90 10^6/uL Hemoglobin 11.6 L 13.5-17.5 g/dL Hematocrit 35.2 L 41.0-53.0 % Mean Corpuscular Volume 78.8 L 80.0-100.0 fL Mean Corpuscular Hemoglobin 26.1 L 28.0-32.0 pg Mean Corpuscular Hemoglobin Concent 33.1 32.0-36.0 g/dL Red Cell Distribution Width 15.9 H 11.8-14.3 % Platelet Count 423 140-450 10^3/uL Mean Platelet Volume 8.0 6.9-10.8 fL Neutrophils (%) (Auto) 56.1 37.0-80.0 % Lymphocytes (%) (Auto) 26.3 10.0-50.0 % Monocytes (%) (Auto) 10.6 0.0-12.0 % Eosinophils (%) (Auto) 6.2 0.0-7.0 % Basophils (%) (Auto) 0.8 0.0-2.0 % Neutrophils # (Auto) 4.1 1.6-8.6 10 ^3/uL Lymphocytes # (Auto) 1.9 0.4-5.4 10 ^3/uL Monocytes # (Auto) 0.8 0-1.3 10 ^3/uL Eosinophils # (Auto) 0.5 0-0.8 10 ^3/uL Basophils # (Auto) 0.1 0-0.2 10 ^3/uL Nucleated Red Blood Cells 0.1 % Sodium Level 135 L 136-145 mmol/L Potassium Level 4.4 3.5-5.1 mmol/L Chloride Level 102 98-107 mmol/L Carbon Dioxide Level 20 20-31 mmol/L Anion Gap 13 5-15 Blood Urea Nitrogen 12 9-23 mg/dL Creatinine 0.88 0.700-1.30 mg/dL Glomerular Filtration Rate Calc 101 >90 mL/min BUN/Creatinine Ratio 13.6 10.0-20.0 Serum Glucose 192 H 74-106 mg/dL Calcium Level 10.1 8.7-10.4 mg/dL Magnesium Level 1.6 1.6-2.6 mg/dL Total Bilirubin 0.3 0.2-1.0 mg/dL Aspartate Amino Transferase (AST) 19 13-40 U/L Alanine Aminotransferase (ALT) 15 7-40 U/L Alkaline Phosphatase 133 H 46-116 U/L Total Protein 6.5 5.7-8.2 g/dL Albumin 4.4 3.2-4.8 g/dL POC Glucose 210 H 70-106 mg/dl Folic Acid 12.59 >5.38 ng/mL Thyroid Stimulating Hormone (TSH) 0.60 0.55-4.78 uIU/mL Test 08/01/25 17:59 08/01/25 17:15 Range/Units Hemoglobin A1c 8.7 H <5.7 % A1C Triglycerides Level 336 H < 150 mg/dL Cholesterol Level 138 < 200 mg/dL LDL Cholesterol 54 < 100 mg/dL HDL Cholesterol 46 40-59 mg/dL Urine Color Light-orange Yellow Urine Clarity Ex.turbid Clear Urine pH 6.0 5.0-9.0 Urine Specific [place] 1.044 H 1.001-1.035 Urine Protein 2+ H Negative Urine Ketones Negative Negative Urine Blood 3+ H Negative /uL Urine Nitrite Negative Negative Urine Bilirubin Negative Negative Urine Urobilinogen Normal Negative mg/dL Urine Leukocyte Esterase 3+ Negative /uL Urine RBC 970 0 - 3 /hpf Urine WBC Clumps Present None Seen /hpf Urine Microscopic WBC 905 H 0-3 /HPF Urine Squamous Epithelial Cells Few <5 /hpf Urine Calcium Oxalate Crystals Many None Seen Urine Bacteria None seen None Seen /hpf Urine Mucus Few None Seen Urine Glucose 4+ H Normal mg/dL Microbiology Date/Time Source Procedure Growth Status 08/02/25 00:45 Nose MRSA Screen - Final Complete 08/01/25 17:59 Blood Blood Culture - Preliminary NO GROWTH AFTER 24 HOURS OF INCUBATION. Resulted 08/01/25 17:15 Voided Urine Urine Culture - Preliminary Resulted Assessment/Plan Problem List: (1) Renal stones (2) Right flank pain (3) Urinary tract infection (4) Foreign body in genitourinary tract, part unspecified, sequela Plan no acute urology intervention indicated treat UTI fluids f/u [facility] urology Plan discussed with: Patient, Other ANANYA MARKHAM NP Aug 03, 2025 10:44
[2025-08-03] MEDS: ONDANSETRON HCL 4 MG/2 ML VIAL IV ONE (11:07)
[2025-08-03 11:12] LABS: Cannabinoid Screen, Urine Pos (NEGATIVE); Opiate Scree,Urine Neg (NEGATIVE)
[2025-08-03 11:26] LABS: Amphetamine Screen, Urine Neg (NEGATIVE); Barbiturate Scree,Urine Neg (NEGATIVE); Benzodiazephine Screen, Urine Neg (NEGATIVE); Cocaine Screen, Urine Neg (NEGATIVE); Phencyclidine Screen, Urine Neg (NEGATIVE)
[2025-08-03] MEDS: ERGOCALCIFEROL 50,000 UNIT(1.25MG) CAP PO SCH (12:00)
[2025-08-03] MEDS ORDERED: MEROPENEM 1GM IVPB 50 ML IV SCH (12:40)
[2025-08-03] MEDS: MEROPENEM 1GM IVPB 50 ML IV SCH (15:02)
[2025-08-03] MEDS: TAMSULOSIN HYDROCHLORIDE 0.4 MG CAP PO SCH (17:37)
[2025-08-04] VITALS (8 sets, daily range): BP systolic 110–168; BP diastolic 74–102; PULSE 76–97; RESP 16–79; TEMP 97.8–98.8; O2SAT 97–98
[2025-08-04] MEDS: PHENAZOPYRIDINE HCL 100 MG TAB PO SCH (12:00)
[2025-08-04] MEDS: KETOROLAC TROMETH 60MG/2ML VIAL IM ONE (12:15)
[2025-08-04] MEDS: HYDROcodone-ACET 10/325MG TAB PO PRN (12:35)
[2025-08-04 13:37] LABS: Hematocrit 40.1 % (41.0-53.0); Hemoglobin 13.3 g/dL (13.5-17.5); Mean Corpuscular Hemoglobin 26.8 pg (28.0-32.0); Mean Corpuscular Volume 80.6 fL (80.0-100.0); Nucleated Red Blood Cells % 0.1 %
[2025-08-04 13:55] LABS: Alanine Aminotransferase 19 U/L (7-40); Albumin 4.9 g/dL (3.2-4.8); Alkaline Phosphatase 148 U/L (46-116); Anion Gap 13 (5-15); BUN/Creatinine Ratio 12.8 (10.0-20.0); Blood Urea Nitrogen 12 mg/dL (9-23); Calcium 10.9 mg/dL (8.7-10.4); Carbon Dioxide 23 mmol/L (20-31); Chloride 101 mmol/L (98-107); Glucose 341 mg/dL (74-106); Magnesium 1.7 mg/dL (1.6-2.6); Potassium 4.3 mmol/L (3.5-5.1); Sodium 137 mmol/L (136-145); Total Protein 7.2 g/dL (5.7-8.2)
[2025-08-04 13:56] LABS: Bilirubin, Total 0.2 mg/dL (0.2-1.0)
[2025-08-04] MEDS: ACETAMINOPHEN 325 MG TAB PO SCH (14:00)
[2025-08-04] MEDS: KETOROLAC TROMETH 30 MG/ML 1ML VIAL IV PRN (15:05)
--- NOTE | 2025-08-04 19:45 | DVHPNRES ---
Progress Note Date Seen: Aug 04, 2025 Resident Creating Document: ALEJANDRA HILLS RESIDENT Has the PT tested + for MRSA If YES, has PT been informed?: No Medical Necessity Reason Pt with a Central, PICC or Fol: No Subjective Review of Systems Patient is a 55-year-old male with past medical history of hypertension, type 2 diabetes mellitus, dyslipidemia, CAD with prior CABG and four coronary stents, nephrolithiasis with right-sided staghorn calculus, chronic nephrostomy tube, and recurrent complicated urinary tract infections. * Reports dysuria and burning sensation with urination. * Rates bladder pain 05/14. * Continues to have right flank discomfort, worsened with urination. * Denies fever, chills, nausea, vomiting, chest pain, or shortness of breath today. * Appetite stable. * Patient is aware of his positive urine culture with ESBL E. coli. Brief Gist of Todays Progress: * Urine culture positive for ESBL E. coli. * Started Ertapenem IV for 2-week course. * business services specialist sales consulted for home health IV antibiotic administration. * Midline catheter placement ordered. * Initiated DVT prophylaxis with enoxaparin. * Added phenazopyridine for dysuria relief. * Blood pressure elevated, likely secondary to pain. * Labs reviewed renal function stable, Hgb low but stable, WBC improved. Review of Systems * Constitutional: Denies fever, chills, weight loss. * : Dysuria, urgency, bladder pain. * GI: Denies nausea, vomiting, diarrhea. * Cardiac/Resp: No chest pain, palpitations, or SOB. * Neuro: No focal weakness, dizziness Objective vital signs Vital Sign Date Time Temp Pulse Resp B/P (MAP) Pulse Ox O2 Delivery O2 Flow Rate FiO2 08/04/25 17:00 98.0 80 17 157/91 (113) 97 98.0 08/04/25 08:00 Room Air* 0 21 Total Intake and Output 08/03/25 08/03/25 08/04/25 15:00 23:00 07:00 Intake Total 100 ml 600 ml 0 ml Output Total 400 ml Balance 100 ml 200 ml 0 ml medications Current Medications Medications Dose Ordered Sig/Pepe Route Start Time Stop Time Status Last Admin Dose Admin Metoprolol Succinate 50 mg DAILY PO 08/02/25 10:00 08/04/25 09:16 50 MG Aspirin 81 mg DAILY PO 08/02/25 10:00 08/04/25 09:16 81 MG Atorvastatin Calcium 40 mg DAILY PO 08/02/25 10:00 08/04/25 09:16 40 MG Diagnostic Test (Pha) 1 strip ACHS 08/01/25 22:00 Insulin Human Regular ACHS SC 08/01/25 22:00 Dextrose 50 ml UD PRN IV 08/01/25 21:45 Insulin Glargine 15 units QAM SC 08/02/25 07:00 Sodium Chloride 1,000 ml @ 100 mls/hr Q10H IV 08/02/25 08:00 08/04/25 10:00 100 MLS/HR Pantoprazole Sodium 40 mg DAILY@0600 PO 08/03/25 06:00 Tamsulosin HCl 0.4 mg QPM PO 08/03/25 18:00 08/03/25 17:37 0.4 MG Ergocalciferol 50,000 unit Q7D PO 08/03/25 10:45 08/03/25 12:00 50,000 UNIT Phenazopyridine HCl 100 mg BID PO 08/04/25 12:00 08/04/25 12:00 100 MG Acetaminophen/ Hydrocodone Bitart 1 tab Q4HP PRN PO 08/04/25 12:15 08/04/25 17:17 1 TAB Acetaminophen 500 mg Q8HR PO 08/04/25 14:00 08/04/25 14:00 500 MG Ketorolac Tromethamine 30 mg Q8HPRN PRN IV 08/04/25 12:15 08/09/25 12:14 08/04/25 15:05 30 MG Ertapenem 1 gm/ Sodium Chloride 50 ml @ 100 mls/hr DAILY IV 08/05/25 10:00 Enoxaparin Sodium 40 mg DAILY SC 08/05/25 10:00 Examination * General: Alert, oriented, mild discomfort due to dysuria. * HEENT: No icterus, no oral lesions. * CV: Regular rate/rhythm, no murmurs. * Resp: Clear to auscultation bilaterally. * Abdomen: Soft, nondistended, right costovertebral angle tenderness present. * : Right nephrostomy tube site clean, draining urine. Dysuria present. * Extremities: No edema, pulses intact. * Skin: No rashes, no jaundice. * Neuro: Non-focal exam, alert and oriented. laboratory and microbiology Laboratory Tests 08/04/25 13:18 Test 08/04/25 13:18 Range/Units Serum Glucose 341 #H 74-106 mg/dL Microbiology Date/Time Source Procedure Growth Status 08/02/25 00:45 Nose MRSA Screen - Final Complete 08/01/25 17:59 Blood Blood Culture - Preliminary NO GROWTH AFTER 72 HOURS OF INCUBATION. Resulted 08/01/25 17:15 Voided Urine Urine Culture - Final Escherichia coli - ESBL Complete Problem List/Assessment/Plan Problem List/Assessment/Plan Assessment Primary Diagnoses: 1. Complicated UTI with ESBL E. coli POA * Meets criteria for severe complicated UTI in immunocompromised host (diabetes, staghorn calculus, nephrostomy tube). * At risk for sepsis though afebrile currently. * Urine culture confirms ESBL ? started on carbapenem (ertapenem). 2. right-sided staghorn calculus and nephrostomy tube POA * Ongoing source for recurrent infections. * Requires outpatient urology follow-up after stabilization. 3. Primary Hypertension POA * Elevated BP likely multifactorial: pain + underlying HTN. 4. Type 2 Diabetes Mellitus with hyperglycemia POA * On insulin regimen; glucose monitoring ongoing. 5. Coronary artery disease s/p CABG with 4 stents POA * On aspirin, statin, beta-pia. 6. Mild normocytic anemia Hgb 9.6 g/dL, stable. POA 7. Leukopenia WBC 1.4 K/L; could be infection-related vs bone marrow suppression. Monitor closely. [facility] Plan Infectious Disease / * Continue Ertapenem 1 g IV daily 14 days. * Midline catheter placement for IV therapy. * Home health referral for outpatient IV antibiotics. * Phenazopyridine PO BID for dysuria. * Monitor fever curve, urine output, repeat CBC, BMP. * Urology consult follow-up; outpatient management for nephrolithiasis. Hematology * Monitor CBC daily (WBC, Hgb, platelets). * Transfusion if Hgb < 7.0. * Evaluate leukopenia if persistent (consider marrow suppression, meds, chronic infection). Cardiovascular * Continue Metoprolol succinate 50 mg PO daily. * Continue Aspirin 81 mg daily, Atorvastatin 40 mg qHS. * Strict BP monitoring; adjust antihypertensives if persistent >160 systolic. Endocrine * Continue Insulin glargine nightly, sliding scale insulin with meals. * Monitor FSBS ACHS. * Hypoglycemia protocol in place. Renal * Maintain hydration (IV NS 100 mL/hr). * Monitor urine output, nephrostomy tube function. * Daily BMP. Pain Management * Acetaminophen 500 mg Q8H PRN mild pain. * [place] Q4H PRN severe pain. * Ketorolac 30 mg IV Q8H PRN severe pain (short-term only, monitor renal function). Prophylaxis * DVT prophylaxis: Enoxaparin 40 mg SC daily. * GI prophylaxis: Pantoprazole 40 mg PO daily. * PUD/Stress prophylaxis continued. Disposition * Anticipated discharge with home health for IV antibiotics once midline placed. * Outpatient urology follow-up at [facility] for nephrolithiasis management. Case discussed in detail with the attending physician, including the clinical presentation, diagnostic workup, and comprehensive management plan. The patient was present for the discussion and demonstrated understanding of his condition and the proposed plan. Plan discussed with: Patient My Orders My Orders Orders - ALEJANDRA HILLS RESIDENT Procedure Category Date Status Time Phenazopyridine Hcl PHA 08/04/25 In Process Tablet (Pyridium Tab 12:00 Hydrocodone-Acet PHA 08/04/25 In Process 10/325mg Tab ([place] 12:15 Acetaminophen Tablet PHA 08/04/25 In Process (Tylenol Tablet) 14:00 Ketorolac Injection PHA 08/04/25 In Process (Toradol Injection) 12:15 Ertapenem Sod Inj PHA 08/05/25 In Process (Invanz) 10:00 Enoxaparin Sodium PHA 08/05/25 In Process (Lovenox) 10:00 Ss Consult To Arrange MISAEL 08/04/25 In Process Home Iv 16:01 Insert Midline ORDERS 08/04/25 Transmitted 16:29 Dietary Evaluation Review Comments: Nutrition Recommendation 1) Consider CCHO 75gm 2) Refer Dental Professional for diabetes education Expected Outcomes/Goals: To meet >75% estimated needs Lab values to improve Fu 3-5 days Date of Service: Aug 04, 2025 Billing Provider: SANDRA NORTON MD Common Visit Codes: 50088-[id number] INP/OBS CARE(HIGH) ALEJANDRA HILLS RESIDENT Aug 04, 2025 19:45 SANDRA NORTON MD Aug 06, 2025 00:17
[2025-08-05] MEDS: MORPHINE SULFATE INJ 2 MG/ml SYRG IV PRN (00:39)
[2025-08-05 01:00] VITALS: BP 142/110; PULSE 80; RESP 20; TEMP 97.9; O2SAT 97
[2025-08-05 05:00] VITALS: BP 164/105; PULSE 74; RESP 19; TEMP 97.8; O2SAT 98
[2025-08-05 05:18] LABS: Hematocrit 34.6 % (41.0-53.0); Hemoglobin 11.8 g/dL (13.5-17.5); Mean Corpuscular Hemoglobin 26.6 pg (28.0-32.0); Mean Corpuscular Volume 77.9 fL (80.0-100.0); Nucleated Red Blood Cells % 0.0 %
[2025-08-05 05:28] LABS: Chloride 104 mmol/L (98-107); Potassium 3.8 mmol/L (3.5-5.1); Sodium 140 mmol/L (136-145)
[2025-08-05 05:29] LABS: Anion Gap 12 (5-15); Carbon Dioxide 24 mmol/L (20-31)
[2025-08-05 05:30] LABS: Calcium 10.2 mg/dL (8.7-10.4)
[2025-08-05 05:35] LABS: BUN/Creatinine Ratio 15.1 (10.0-20.0); Blood Urea Nitrogen 11 mg/dL (9-23); Glucose 179 mg/dL (74-106)
[2025-08-05] MEDS: hydrALAZINE HCL 20 MG/ML VL IV ONE (06:47)
[2025-08-05 08:00] VITALS: PULSE 89; RESP 18; O2SAT 96
[2025-08-05 09:00] VITALS: BP 144/81; PULSE 93; RESP 18; TEMP 97.8; O2SAT 98
[2025-08-05] MEDS: ENOXAPARIN SOD 40 MG/0.4 ML SYRINGE SC SCH (10:00)
[2025-08-05] MEDS ORDERED: MORPHINE SULFATE 4 MG/ML SYR/VIAL IV PRN (10:30)
--- NOTE | 2025-08-05 10:54 | DVHDSRES ---
Discharge Summary Date of Admission Resident Creating Document: HERMILA ABARCA RESIDENT Aug 01, 2025 at 21:09 Date of Discharge: Aug 05, 2025 Labs/Diagnostic Data: Laboratory Results Test 08/05/25 05:04 08/04/25 13:18 08/03/25 09:56 08/02/25 17:15 White Blood Count 10.1 10^3/uL (4.4-10.8) Red Blood Count 4.44 10^6/uL (4.5-5.90) Hemoglobin 11.8 g/dL (13.5-17.5) Hematocrit 34.6 % (41.0-53.0) Mean Corpuscular Volume 77.9 fL (80.0-100.0) Mean Corpuscular Hemoglobin 26.6 pg (28.0-32.0) Mean Corpuscular Hemoglobin Concent 34.1 g/dL (32.0-36.0) Red Cell Distribution Width 16.2 % (11.8-14.3) Platelet Count 448 10^3/uL (140-450) Mean Platelet Volume 7.3 fL (6.9-10.8) Neutrophils (%) (Auto) 62.1 % (37.0-80.0) Lymphocytes (%) (Auto) 16.5 % (10.0-50.0) Monocytes (%) (Auto) 9.3 % (0.0-12.0) Eosinophils (%) (Auto) 11.3 % (0.0-7.0) Basophils (%) (Auto) 0.8 % (0.0-2.0) Neutrophils # (Auto) 6.3 10 ^3/uL (1.6-8.6) Lymphocytes # (Auto) 1.7 10 ^3/uL (0.4-5.4) Monocytes # (Auto) 0.9 10 ^3/uL (0-1.3) Eosinophils # (Auto) 1.1 10 ^3/uL (0-0.8) Basophils # (Auto) 0.1 10 ^3/uL (0-0.2) Nucleated Red Blood Cells 0.0 % Sodium Level 140 mmol/L (136-145) Potassium Level 3.8 mmol/L (3.5-5.1) Chloride Level 104 mmol/L (98-107) Carbon Dioxide Level 24 mmol/L (20-31) Anion Gap 12 (5-15) Blood Urea Nitrogen 11 mg/dL (9-23) Creatinine 0.73 mg/dL (0.700-1.30) Glomerular Filtration Rate Calc 107 mL/min (>90) BUN/Creatinine Ratio 15.1 (10.0-20.0) Serum Glucose 179 mg/dL (74-106) Calcium Level 10.2 mg/dL (8.7-10.4) Magnesium Level 1.7 mg/dL (1.6-2.6) Total Bilirubin 0.2 mg/dL (0.2-1.0) Aspartate Amino Transferase (AST) 22 U/L (13-40) Alanine Aminotransferase (ALT) 19 U/L (7-40) Alkaline Phosphatase 148 U/L (46-116) Total Protein 7.2 g/dL (5.7-8.2) Albumin 4.9 g/dL (3.2-4.8) Lactic Acid Level 1.7 mmol/L (0.4-2.0) POC Glucose 210 mg/dl (70-106) Test 08/02/25 10:16 08/01/25 17:59 08/01/25 17:15 Vitamin D 25-Hydroxy 20.7 ng/mL (30.0-100) Folic Acid 12.59 ng/mL (>5.38) Thyroid Stimulating Hormone (TSH) 0.60 uIU/mL (0.55-4.78) Hemoglobin A1c 8.7 % A1C (<5.7) Triglycerides Level 336 mg/dL (< 150) Cholesterol Level 138 mg/dL (< 200) LDL Cholesterol 54 mg/dL (< 100) HDL Cholesterol 46 mg/dL (40-59) Urine Color Light-orange (Yellow) Urine Clarity Ex.turbid (Clear) Urine pH 6.0 (5.0-9.0) Urine Specific Wells 1.044 (1.001-1.035) Urine Protein 2+ (Negative) Urine Ketones Negative (Negative) Urine Blood 3+ /uL (Negative) Urine Nitrite Negative (Negative) Urine Bilirubin Negative (Negative) Urine Urobilinogen Normal mg/dL (Negative) Urine Leukocyte Esterase 3+ /uL (Negative) Urine RBC 970 /hpf (0 - 3) Urine WBC Clumps Present /hpf (None Seen) Urine Microscopic WBC 905 /HPF (0-3) Urine Squamous Epithelial Cells Few /hpf (<5) Urine Calcium Oxalate Crystals Many (None Seen) Urine Bacteria None seen /hpf (None Seen) Urine Mucus Few (None Seen) Urine Glucose 4+ mg/dL (Normal) Urine Opiates Screen Neg (NEGATIVE) Urine Fentanyl Screen Neg (NEGATIVE) Urine Barbiturates Screen Neg (NEGATIVE) Urine Phencyclidine Screen Neg (NEGATIVE) Urine Amphetamines Screen Neg (NEGATIVE) Urine Benzodiazepines Screen Neg (NEGATIVE) Urine Cocaine Screen Neg (NEGATIVE) Urine Cannabinoids Screen Pos (NEGATIVE) Other Laboratory Tests 08/05/25 05:04 Brief Hx & Hospital Course: This is a 55-year-old male with past medical history of hypertension, type 2 diabetes, dyslipidemia, triple bypass and coronary artery disease with four stents placed. Patient presented to the ED due to urinary retention associated with fever/chills and burning sensation when peeing. Patient is a poor historian and states that he was treated at an assisted living facility for complicated UTI with IV antibiotics and was sent home. Afterwards he states that he received a call from [facility] stating that he needed to go back to a nearest hospital due to positive urine bacterial culture and blood cultures. Patient states that he has been having fever and chills for the past three days and that the urinary bag has been collecting turbid whitish urine with bad odour for the past three days. Patient also reports dysuria and burning sensation while urinating. Patient has a nephrostomy tube in the right kidney that has been placed for 1.5 years. Last nephrostomy tube change was 1 month before at [facility].. Patient states that he has a right-sided staghorn calculi and apparently another calculi in the bladder. Patient states that he was supposed to have urologic surgery yesterday but surgery was postponed due to infection. Patient also reported he had several loose bowel movement, no blood in last week for couple of days. On admission patient was tachycardic with elevated lactic acid and borderline WBC. Urinalysis revealed leukocyte esterase 3+, WBC 95, RBC 970. Patient upon examination has right-sided costovertebral angle tenderness and pain to palpation at the level of the bladder rated as 7/[address] scale[address] of the abdomen and pelvis without contrast and placed urology consultation. Patient treated with IV antibiotic Zosyn, urine culture revealed E coli ESBL. IV antibiotic was changed to ertapenem. Patient is being discharged to SNF with the IV antibiotic you ertapenem 1 g daily for 2 weeks total. Patient was hemodynamically stable on discharge. Was advised to follow up with the primary care physician for significant SNF. Patient was also advised to follow up with urologist at [place] for further evaluation and care. Consults/Reason for consult Patient Name: MRE LEWIS Acct: [id number] Room: 0238 /Bed: A Attending Physician: ELIAZAR TORO RESIDENT Loc: [facility] Unit: [id number] CONSULTATION REPORT . ................................................................................ ............................................................................... Date of service: Aug 03, 2025 Referring Physician hospitalist Reason for Consultation staghorn calculus PCN in place History of Present Illness History Source: Patient, RN Notes, MD Notes, Old Records Exam Limitations: No limitations HPI 55 yo patient known to urology practice for right staghorn and equivocal right renal function. He had attempted PCNL in 2021 but access was not sufficient for treatment. He is now under care of [facility] urology who ordered a NM renal scan 11/18/2024 which shows a split function of 19% right and 81% on the left. He is pending right nephrectomy. He does not want any urologist from this area to treat him. Creatinine is at baseline. No leukocytosis. Preliminary Ucx shows GNRs >100k CFU. On CT Right-sided nephrostomy tube appears well positioned. No hydronephrosis or other acute abnormality. Home Meds Active Scripts Hydrocodone-Acetaminophen (Hydrocodone Bitartrate/AC 5-325 mg) 1 Tab Tab, 1 TAB PO TID PRN, #12 TAB Prov:JODY MAURER MOBILITY ARCHITECT 02/08/25 Ciprofloxacin Hcl (Cipro) 500 Mg Tab, 1 TAB PO BID for 10 Days, #20 TAB Prov:JODY MAURER MOBILITY ARCHITECT 02/08/25 Ondansetron Odt 4MG Tab (ZOFRAN PO) 4 Mg Tb, 4 MG PO TIDPRN PRN for 5 Days, #15 TAB 0 Refills ODT TAB-DISSOLVE IN MOUTH, THEN SWALLOW Prov:BRUCE SAENZ MD 09/06/24 Hydrocodone-Acetaminophen (Hydrocodone Bitartrate/AC 10-325 mg) 1 Tab Tab, 1 TAB PO TIDPRN PRN for 7 Days, #21 TAB Prov:BRUCE ASENZ MD 09/06/24 Sulfamethoxazole-Trimethoprim (Bactrim) 1 Tab Tab, 1 TAB PO BID for 14 Days, #28 TAB 0 Refills Prov:BRUCE SAENZ MD 09/06/24 Reported Medications Metoprolol Tartrate (LOPRESSOR TABLET) 50 Mg Tb, 1 TAB PO BID 07/08/24 Aspirin (Aspirin) 325 Mg Tab, 1 TAB PO DAILY, #30 TAB 5 Refills 07/08/24 Atorvastatin Calcium (ATORVASTATIN CALCIUM) 40 Mg Tab, 1 TAB PO DAILY, #30 TAB 5 Refills 07/08/24 Metformin Hydrochloride (Metformin Hcl) 500 Mg Tab, PO 07/08/24 Past Medical History Cardiac: CAD, HTN, [place] Renal/: UTI Endocrine: IDDM Past Surgical History: CABG, Other (PCNL) Patient Family History: Patient reports no known family medical history. H&P Exam Vital Signs Vital Signs Date Time Temp Pulse Resp B/P (MAP) Pulse Ox O2 Delivery O2 Flow Rate FiO2 08/03/25 09:05 97.4 90 18 158/105 (122) 98 97.4 08/02/25 20:00 Room Air* 0 21 Labs/Xrays [facility] [id number] [place] [address] Ph: [phone] DIAGNOSTIC IMAGING Diagnostic Imaging Report : [id number] Signed PATIENT: MER LEWIS ACCT: [id number] UNIT: [id number] : 1970 LOC: OVERFLOW ROOM / BED: 1012-ER / A AGE / SEX: 55 / M ADM STATUS: ADM IN SERVICE 17 ORDERING PHYSICIAN: ELIAZAR TROO RESIDENT PROCEDURE(s): ABPL - CT AB PEL WO CON-NO ORAL OR IV REASON: R/O right sided nephrostomy tube obstruction, staghorn calc ORDER NUMBER(s): [id number], ACCESSION NUMBER(s): [id number] Exam: CT CT AB PEL WO CON-NO ORAL OR IV History: R/O right sided nephrostomy tube obstruction, staghorn calc Comparison Study: CT CT AB PEL WO CON-NO ORAL OR IV on DOS: 02/08/25, CT CT AB PEL WO CON-NO ORAL OR IV on DOS: 09/03/24, CT CT AB PEL WITH IV CON ONLY on DOS: 07/07/24 Technique: Multidetector spiral CT of the abdomen was performed from lung bases to pubic symphysis. Imaging was performed without IV contrast. Axial, coronal and sagittal multiplanar reformats were obtained from the axial data set by the technologist. Radiation dose : 1. Abdomen/Pelvis: CTDIvol 14.64 mGy, DLP 962.11 mGy*cm. Findings: Evaluation of solid organs is limited due to lack of intravenous contrast use. Lung Bases: No acute or significant lung base finding. Normal heart size. No pleural or pericardial effusion. Liver: The liver is normal in size. No focal lesions. Gallbladder and biliary Tree: Unremarkable Spleen: Unremarkable Pancreas: The pancreas is grossly normal in appearance. Adrenal Glands: Unremarkable Kidneys: Percutaneous nephro ureterostomy tube on the right. No hydronephrosis. This appears normally positioned. Large staghorn calculus within the right renal pelvis again noted. Bladder: Grossly unremarkable for degree of distention. Bowel: The stomach is grossly normal in appearance. Small bowel and colon are normal in caliber and distribution. Normal appendix is visualized in the right lower quadrant without findings of appendicitis. Ascites: Absent Lymphadenopathy: No mesenteric, retroperitoneal or periportal lymphadenopathy. Abdominal wall and Mesentery: Unremarkable. Vasculature: The visualized abdominal aorta is normal in size and caliber. Evaluation of abdominal and pelvic vessels is limited due to lack of intravenous contrast. Pelvic Organs: Unremarkable Musculoskeletal: No aggressive focal bony lesions, acute fractures or dislocation. IMPRESSION: Right-sided nephrostomy tube appears well positioned. No hydronephrosis or other acute abnormality. Radiation optimization: All CT scans at this facility use at least one of these dose optimization techniques: automated exposure control mA and/or kV adjustment per patient size (includes targeted exams where dose is matched to clinical indication) or iterative reconstruction. ATED BY: KERA SOUSA MD DICTATED DATE/TIME: 08/01/252220 SIGNED BY: KERA SOUSA MD SIGNED DATE/TIME: 08/01/252220 CC: Labs Test 08/03/25 09:56 08/03/25 05:13 08/02/25 17:15 08/02/25 10:16 Range/Units White Blood Count 7.4 4.4-10.8 10^3/uL Red Blood Count 4.46 L 4.5-5.90 10^6/uL Hemoglobin 11.6 L 13.5-17.5 g/dL Hematocrit 35.2 L 41.0-53.0 % Mean Corpuscular Volume 78.8 L 80.0-100.0 fL Mean Corpuscular Hemoglobin 26.1 L 28.0-32.0 pg Mean Corpuscular Hemoglobin Concent 33.1 32.0-36.0 g/dL Red Cell Distribution Width 15.9 H 11.8-14.3 % Platelet Count 423 140-450 10^3/uL Mean Platelet Volume 8.0 6.9-10.8 fL Neutrophils (%) (Auto) 56.1 37.0-80.0 % Lymphocytes (%) (Auto) 26.3 10.0-50.0 % Monocytes (%) (Auto) 10.6 0.0-12.0 % Eosinophils (%) (Auto) 6.2 0.0-7.0 % Basophils (%) (Auto) 0.8 0.0-2.0 % Neutrophils # (Auto) 4.1 1.6-8.6 10 ^3/uL Lymphocytes # (Auto) 1.9 0.4-5.4 10 ^3/uL Monocytes # (Auto) 0.8 0-1.3 10 ^3/uL Eosinophils # (Auto) 0.5 0-0.8 10 ^3/uL Basophils # (Auto) 0.1 0-0.2 10 ^3/uL Nucleated Red Blood Cells 0.1 % Sodium Level 135 L 136-145 mmol/L Potassium Level 4.4 3.5-5.1 mmol/L Chloride Level 102 98-107 mmol/L Carbon Dioxide Level 20 20-31 mmol/L Anion Gap 13 5-15 Blood Urea Nitrogen 12 9-23 mg/dL Creatinine 0.88 0.700-1.30 mg/dL Glomerular Filtration Rate Calc 101 >90 mL/min BUN/Creatinine Ratio 13.6 10.0-20.0 Serum Glucose 192 H 74-106 mg/dL Calcium Level 10.1 8.7-10.4 mg/dL Magnesium Level 1.6 1.6-2.6 mg/dL Total Bilirubin 0.3 0.2-1.0 mg/dL Aspartate Amino Transferase (AST) 19 13-40 U/L Alanine Aminotransferase (ALT) 15 7-40 U/L Alkaline Phosphatase 133 H 46-116 U/L Total Protein 6.5 5.7-8.2 g/dL Albumin 4.4 3.2-4.8 g/dL POC Glucose 210 H 70-106 mg/dl Folic Acid 12.59 >5.38 ng/mL Thyroid Stimulating Hormone (TSH) 0.60 0.55-4.78 uIU/mL Test 08/01/25 17:59 08/01/25 17:15 Range/Units Hemoglobin A1c 8.7 H <5.7 % A1C Triglycerides Level 336 H < 150 mg/dL Cholesterol Level 138 < 200 mg/dL LDL Cholesterol 54 < 100 mg/dL HDL Cholesterol 46 40-59 mg/dL Urine Color Light-orange Yellow Urine Clarity Ex.turbid Clear Urine pH 6.0 5.0-9.0 Urine Specific Wells 1.044 H 1.001-1.035 Urine Protein 2+ H Negative Urine Ketones Negative Negative Urine Blood 3+ H Negative /uL Urine Nitrite Negative Negative Urine Bilirubin Negative Negative Urine Urobilinogen Normal Negative mg/dL Urine Leukocyte Esterase 3+ Negative /uL Urine RBC 970 0 - 3 /hpf Urine WBC Clumps Present None Seen /hpf Urine Microscopic WBC 905 H 0-3 /HPF Urine Squamous Epithelial Cells Few <5 /hpf Urine Calcium Oxalate Crystals Many None Seen Urine Bacteria None seen None Seen /hpf Urine Mucus Few None Seen Urine Glucose 4+ H Normal mg/dL Microbiology Date/Time Source Procedure Growth Status 08/02/25 00:45 Nose MRSA Screen - Final Complete 08/01/25 17:59 Blood Blood Culture - Preliminary NO GROWTH AFTER 24 HOURS OF INCUBATION. Resulted 08/01/25 17:15 Voided Urine Urine Culture - Preliminary Resulted Assessment/Plan Problem List: (1) Renal stones (2) Right flank pain (3) Urinary tract infection (4) Foreign body in genitourinary tract, part unspecified, sequela Plan no acute urology intervention indicated treat UTI fluids f/u [facility] urology Plan discussed with: Patient, Other ANANYA MARKHAM NP Aug 03, 2025 10:44 DICTATED BY:ANANYA MARKHAM NP DICTATED DATE/TIME:08/03/25 104 ELECTRONICALLY SIGNED BY:ANANYA MARKHAM NP 08/03/25 104 ELECTRONICALLY CO-SIGNED BY: Operations or Procedures [place] [address] Ph: [phone] DIAGNOSTIC IMAGING Diagnostic Imaging Report : [id number] Signed PATIENT: MER LEWIS ACCT: [id number] UNIT: [id number] : 1970 [facility]GE / SEX: 55 / M ADM STATUS: ADM IN SERVICE 17 ORDERING PHYSICIAN: ELIAZAR TORO RESIDENT PROCEDURE(s): ABPL - CT AB PEL WO CON-NO ORAL OR IV REASON: R/O right sided nephrostomy tube obstruction, staghorn calc ORDER NUMBER(s): [id number], ACCESSION NUMBER(s): [id number] Exam: CT CT AB PEL WO CON-NO ORAL OR IV History: R/O right sided nephrostomy tube obstruction, staghorn calc Comparison Study: CT CT AB PEL WO CON-NO ORAL OR IV on DOS: 02/08/25, CT CT AB PEL WO CON-NO ORAL OR IV on DOS: 09/03/24, CT CT AB PEL WITH IV CON ONLY on DOS: 07/07/24 Technique: Multidetector spiral CT of the abdomen was performed from lung bases to pubic symphysis. Imaging was performed without IV contrast. Axial, coronal and sagittal multiplanar reformats were obtained from the axial data set by the technologist. Radiation dose : 1. Abdomen/Pelvis: CTDIvol 14.64 mGy, DLP 962.11 mGy*cm. Findings: Evaluation of solid organs is limited due to lack of intravenous contrast use. Lung Bases: No acute or significant lung base finding. Normal heart size. No pleural or pericardial effusion. Liver: The liver is normal in size. No focal lesions. Gallbladder and biliary Tree: Unremarkable Spleen: Unremarkable Pancreas: The pancreas is grossly normal in appearance. Adrenal Glands: Unremarkable Kidneys: Percutaneous nephro ureterostomy tube on the right. No hydronephrosis. This appears normally positioned. Large staghorn calculus within the right renal pelvis again noted. Bladder: Grossly unremarkable for degree of distention. Bowel: The stomach is grossly normal in appearance. Small bowel and colon are normal in caliber and distribution. Normal appendix is visualized in the right lower quadrant without findings of appendicitis. Ascites: Absent Lymphadenopathy: No mesenteric, retroperitoneal or periportal lymphadenopathy. Abdominal wall and Mesentery: Unremarkable. Vasculature: The visualized abdominal aorta is normal in size and caliber. Evaluation of abdominal and pelvic vessels is limited due to lack of intravenous contrast. Pelvic Organs: Unremarkable Musculoskeletal: No aggressive focal bony lesions, acute fractures or dislocation. IMPRESSION: Right-sided nephrostomy tube appears well positioned. No hydronephrosis or other acute abnormality. Radiation optimization: All CT scans at this facility use at least one of these dose optimization techniques: automated exposure control mA and/or kV adjustment per patient size (includes targeted exams where dose is matched to clinical indication) or iterative reconstruction. ATED BY: KERA SOUSA MD DICTATED DATE/TIME: 08/01/252220 SIGNED BY: KERA SOUSA MD SIGNED DATE/TIME: 08/01/252220 CC: Condition at Discharge: Stable Final Diagnosis/Problems List # Sepsis likely due to complicated UTI-E coli ESBL # suspected pyelonephritis of the right kidney, Possible right-sided nephrostomy tube infection # hematuria # history of urinary bladder stone #History of right-sided staghorn calculi and bladder calculi #Primary hypertension #Type 2 diabetes mellitus with hyperglycemia # CAD, History of CABG, coronary artery disease with four stents placed #Hyperlipidemia # substance abuse Discharge Disposition: Assisted Facility Discharge Instruct/Medications Diet: Consistent carbohydrate, Cardiac 2g Na,low cholest Follow Up/Referral: Please follow up with the primary care physician in 1 week/MD at SNF Please follow up with your [facility] urologist in 1-2 weeks for further evaluation and care of renal calculi/urinary bladder calculi Medications: IV antibiotic ertapenem as prescribed Continue other home medications Scheduled Aspirin (Aspirin), 1 TAB PO DAILY, (Reported) Atorvastatin Calcium (Atorvastatin Calcium), 1 TAB PO DAILY, (Reported) Ciprofloxacin Hcl (Cipro), 1 TAB PO BID Metoprolol Tartrate (Lopressor Tablet), 1 TAB PO BID, (Reported) Sulfamethoxazole-Trimethoprim (Bactrim), 1 TAB PO BID Scheduled PRN Hydrocodone-Acetaminophen (Hydrocodone Bitartrate/AC 10-325 mg), 1 TAB PO TIDPRN PRN Hydrocodone-Acetaminophen (Hydrocodone Bitartrate/AC 5-325 mg), 1 TAB PO TID PRN Ondansetron Odt 4MG Tab (Zofran Po), 4 MG PO TIDPRN PRN Miscellaneous Medications Metformin Hydrochloride (Metformin Hcl), PO, (Reported) Discharge Statement: "Patient was advised to return to the ER or call 911 if any headaches, dizziness, shortness of breath, chest pain, abdominal pain, bleeding, fevers, or worsening of medical condition. Patient was counseled about treatment plan, medications, possible side effects, patientverbalized understanding. All questions were answered to the best of my ability. This discharge took greater then 30 minutes in planning, reviewing documentation, counseling the patient, and discussing with other team members." ASSESSMENT ASSESSMENT Assessment Date of Service: Aug 05, 2025 Billing Provider: SANDRA NORTON MD Common Visit Codes: 75093-ZRB/OBS DISCH DAY >30min HERMILA ABARCA RESIDENT Aug 05, 2025 10:54 SANDRA NORTON MD Aug 05, 2025 22:12
[2025-08-05] MEDS: MORPHINE SULFATE 4 MG/ML SYR/VIAL IV PRN (11:07)
[2025-08-05] MEDS: ERTAPENEM SOD INJ 1 GM in SODIUM CHL 0.9% 50 ML IV SCH (12:13)
[2025-08-05 12:27] VITALS: BP 162/91; PULSE 91; RESP 18; TEMP 98.6; O2SAT 97
[2025-08-05 16:40] VITALS: BP 175/105; PULSE 77; RESP 20; TEMP 98.6; O2SAT 95
[2025-08-08 14:07] LABS: Vitamin B1, Whole Blood 130.3 nmol/L (66.5-200.0)
== END 2025-08-05 19:16 | DRG 466 ==
LOC: ER 16:16 → OVERFLOW 21:09 → EAST 23:58
PROVIDERS: ADMIT Student in an Organized Health Care Education/Training Program; ATTEND Student in an Organized Health Care Education/Training Program
PROC: 05HF33Z Insertion of Infusion Device into Left Cephalic Vein, Percutaneous Approach (ICD-10-PCS; principal; 2025-08-05)
PROC: B54NZZA Ultrasonography of Left Upper Extremity Veins, Guidance (ICD-10-PCS; 2025-08-05)
DX: T83.512A Infection and inflammatory reaction due to nephrostomy catheter, initial encounter (principal); A41.51 Sepsis due to Escherichia coli [E. coli]; D84.89 Other immunodeficiencies; I16.0 Hypertensive urgency; E11.22 Type 2 diabetes mellitus with diabetic chronic kidney disease; D64.9 Anemia, unspecified; T19.8XXA Foreign body in other parts of genitourinary tract, initial encounter; E11.65 Type 2 diabetes mellitus with hyperglycemia; E78.5 Hyperlipidemia, unspecified; N12 Tubulo-interstitial nephritis, not specified as acute or chronic; I12.9 Hypertensive chronic kidney disease with stage 1 through stage 4 chronic kidney disease, or unspecified chronic kidney disease; I25.10 Atherosclerotic heart disease of native coronary artery without angina pectoris; N20.0 Calculus of kidney; Z88.0 Allergy status to penicillin; Z79.2 Long term (current) use of antibiotics; Z79.82 Long term (current) use of aspirin; Z79.84 Long term (current) use of oral hypoglycemic drugs; Z95.1 Presence of aortocoronary bypass graft; Z87.442 Personal history of urinary calculi; Z79.4 Long term (current) use of insulin; W44.8XXA Other foreign body entering into or through a natural orifice, initial encounter; Y84.8 Other medical procedures as the cause of abnormal reaction of the patient, or of later complication, without mention of misadventure at the time of the procedure; Y92.89 Other specified places as the place of occurrence of the external cause
CPT/HCPCS: 36415; 74176; 80048; 80053; 80061; 80307; 81001; 82306; 82746; 82962; 83036; 83605; 83735; 84425; 84443; 85025; 87040; 87081; 87086; 87088; 87186; 96365; 96375; G0378; J1335; J1885; J2185; J2543; Q0162